=== PATIENT | male | born 1945 | race Caucasian/White ===

== ENCOUNTER → 2017-06-27 | Outpatient (CLI) | payer MEDICARE, OTHER ==
[~2017-06-27] MED LIST: ADENOSINE 114 MG in GIVE UN-DILUTED 0 ML IV ONE; ADENOSINE 90 MG/30 ML INJ IV ONE; ATEN50TA80 OR; CARI-277 PO; CITA20TA3 PO; DUTACAP PO; GABA100C9 PO; GEMF600T OR; GLYB1.257 PO; HYDR-4683 PO; LIS10T PO; METF-371 OR; OMEG1CAP10 PO; TEMA30CA PO
== END ==
LOC: Rad HDHVI 13:37
PROVIDERS: ATTEND Internal Medicine Cardiovascular Disease
DX: I10 Essential (primary) hypertension (principal); I21.9 Acute myocardial infarction, unspecified; E11.9 Type 2 diabetes mellitus without complications; I25.10 Atherosclerotic heart disease of native coronary artery without angina pectoris; I42.9 Cardiomyopathy, unspecified; Z95.1 Presence of aortocoronary bypass graft; Z82.49 Family history of ischemic heart disease and other diseases of the circulatory system
CPT/HCPCS: 78452; 93005; 96374; 96375; A9500; J0153

== ENCOUNTER → 2018-06-21 | Outpatient (CLI) | payer MEDICARE, OTHER ==
[~2018-06-21] VITALS: Ht 193 cm; Wt 131.1 kg
[~2018-06-21] MED LIST changes: +ADENOSINE 110 MG in GIVE UN-DILUTED 0 ML IV ONE; -ADENOSINE 114 MG in GIVE UN-DILUTED 0 ML IV ONE
== END | disposition home or self-care (01) ==
LOC: Rad HDHVI 12:59
PROVIDERS: ATTEND Internal Medicine Cardiovascular Disease
DX: I25.5 Ischemic cardiomyopathy (principal); E78.2 Mixed hyperlipidemia; E11.9 Type 2 diabetes mellitus without complications; Z88.8 Allergy status to other drugs, medicaments and biological substances
CPT/HCPCS: 78452; 93005; 96374; 96375; A9500; J0153

== ENCOUNTER → 2019-04-04 | Outpatient (CLI) | payer MEDICARE, OTHER ==
[~2019-04-04] MED LIST changes: -ADENOSINE 110 MG in GIVE UN-DILUTED 0 ML IV ONE; -ADENOSINE 90 MG/30 ML INJ IV ONE; -HYDR-4683 PO; +HYDR-4833 PO
== END | disposition home or self-care (01) ==
LOC: Rad HDHVI 10:45
PROVIDERS: ATTEND Internal Medicine Cardiovascular Disease
DX: I25.10 Atherosclerotic heart disease of native coronary artery without angina pectoris (principal); I11.9 Hypertensive heart disease without heart failure
CPT/HCPCS: 71046

== ENCOUNTER → 2019-06-25 | Outpatient (CLI) | payer MEDICARE, OTHER ==
[~2019-06-25] MED LIST changes: +ALLO100T PO; +AMIT25TA9 PO; +AMLO10TA13 PO; +ASPI-404 PO; +CALC0.25 PO; +FENO160T8 PO; +FINA5TAB4 PO; +FURO20TA3 PO; +INSLANTI SC; +LORA-622 PO; +LOSA25TA38 PO; +TICA90TA PO
[2019-06-25 10:00] VITALS: BP 142/81
[2019-06-25 10:45] VITALS: BP 134/75
--- NOTE | 2019-06-25 10:45 | NUR ---
Pre-Op Discharge Summary: See e-MAR for any medications given for this visit. Pre-op orders received and carried out per MD of EKG, LABS and chest xrays. Patient given a copy of EKG with instructions to go to [facility] out patient for further follow up care.
[2019-06-25 12:27] LABS: Basophils # (auto) 0 uL; Basophils % (auto) 0.4 % (0.0-2.0); Eosinophils # (auto) 0 uL; Eosinophils % (auto) 0.7 % (0.0-7.0); Hematocrit 43.8 % (41.0-53.0); Hemoglobin 14.9 g/dL (13.5-17.5); Lymphocytes # (auto) 1.1 uL; Lymphocytes % (auto) 24.2 % (10.0-50.0); Mean Corpuscular Hemoglobin 31.7 pg (28.0-32.0); Mean Corpuscular Volume 93.3 fL (80.0-100.0); Monocytes # (auto) 0.4 uL; Monocytes % (auto) 9.8 % (0.0-12.0); Neutrophils # (auto) 2.8 uL; Neutrophils % (auto) 64.9 % (37.0-80.0); Nucleated Red Blood Cells % 0.1 %; Platelet Count (auto) 125 10^3/uL (140-450); Red Cell Distribution Width 13.6 % (11.8-14.3); White Blood Cell 4.4 10^3/uL (4.4-10.8)
[2019-06-25 12:42] LABS: BUN/Creatinine Ratio 14.1; Calcium 8.9 mg/dL (8.5-10.1); Potassium 4.5 mmol/L (3.5-5.1)
[2019-06-25 12:44] LABS: INR 1.04 (0.9-1.15); Partial Thromboplastin Time 25.3 sec (23.64-32.05)
== END | disposition home or self-care (01) ==
LOC: Rad HDHVI 10:03
PROVIDERS: ATTEND Internal Medicine Cardiovascular Disease
DX: Z01.812 Encounter for preprocedural laboratory examination (principal); R06.02 Shortness of breath; I50.9 Heart failure, unspecified; I48.91 Unspecified atrial fibrillation; I25.10 Atherosclerotic heart disease of native coronary artery without angina pectoris; I25.2 Old myocardial infarction; R94.31 Abnormal electrocardiogram [ECG] [EKG]
CPT/HCPCS: 36415; 71046; 80048; 85025; 85610; 85730; 93005; G0463

== ENCOUNTER 2019-06-28 07:27 | Day surgery (SDC) | payer MEDICARE, OTHER ==
[~2019-06-28] VITALS: Ht 188 cm; Wt 127.0 kg
[~2019-06-28 07:27] MED LIST changes: -ATEN50TA80 OR; -CARI-277 PO; -CITA20TA3 PO; -DUTACAP PO; -GEMF600T OR; -HYDR-4833 PO; -LIS10T PO; -METF-371 OR; -OMEG1CAP10 PO
[2019-06-28] MEDS ORDERED: IOHEXOL 350 MG/ML 100ML IJ ONE (08:16)
[2019-06-28] MEDS ORDERED: LIDOCAINE 2%HCL (LOCAL ANESTH.) INJ 20ML MDV ONE (08:16)
[2019-06-28] MEDS ORDERED: ANGIOMAX 250 MG VIAL IV ONE (08:52)
[2019-06-28] MEDS ORDERED: MIDAZOLAM HCL 1MG/1ML-2 ML VIAL ONE (08:52)
[2019-06-28] MEDS ORDERED: SODIUM CHL 0.9% 0 ML ONE (08:52)
[2019-06-28] MEDS ORDERED: fentaNYL CITRATE 100 MCG/2 ML VL ONE (08:52)
[2019-06-28] MEDS ORDERED: IODIXANOL 320MG/ML 100ML BTL IV ONE ×2 (09:12→09:43)
[2019-06-28] MEDS ORDERED: ONDANSETRON HCL 4 MG/2 ML VIAL IV PRN (10:15)
[2019-06-28] MEDS ORDERED: HYDROcodone-ACET 5/325MG TAB PO PRN (10:15)
[2019-06-28] MEDS ORDERED: ACETAMINOPHEN 500 MG TAB PO PRN (10:15)
[2019-06-28] MEDS ORDERED: SODIUM CHLORIDE 0.9% 500 ML IV ONE (11:00)
== END 2019-06-28 12:16 | disposition home or self-care (01) ==
LOC: CATH 07:27
PROVIDERS: ATTEND Internal Medicine Cardiovascular Disease
DX: I25.10 Atherosclerotic heart disease of native coronary artery without angina pectoris (principal); I10 Essential (primary) hypertension; I25.2 Old myocardial infarction; E11.40 Type 2 diabetes mellitus with diabetic neuropathy, unspecified; E11.21 Type 2 diabetes mellitus with diabetic nephropathy; Z95.1 Presence of aortocoronary bypass graft; Z79.4 Long term (current) use of insulin; Z79.82 Long term (current) use of aspirin; Z79.899 Other long term (current) drug therapy; Z87.891 Personal history of nicotine dependence
CPT/HCPCS: 93455; C1760; C1894; J1644; J2250; J3010; J7030; Q9967; 93459; 99152; 99153

== ENCOUNTER → 2020-02-01 | Outpatient (CLI) | payer MEDICARE, OTHER ==
[~2020-02-01] MED LIST changes: -ASPI-404 PO; +ASPI-543 PO
[2020-02-01 12:40] LABS: Basophils # (auto) 0 10 ^3/uL (0-0.2); Basophils % (auto) 0.5 % (0.0-2.0); Eosinophils # (auto) 0 10 ^3/uL (0-0.8); Hematocrit 42.7 % (41.0-53.0); Hemoglobin 14.9 g/dL (13.5-17.5); Lymphocytes # (auto) 1.2 10 ^3/uL (0.4-5.4); Lymphocytes % (auto) 27.1 % (10.0-50.0); Mean Corpuscular Hemoglobin 31.6 pg (28.0-32.0); Mean Corpuscular Hgb Conc. 34.8 g/dL (32.0-36.0); Mean Corpuscular Volume 90.7 fL (80.0-100.0); Monocytes # (auto) 0.4 10 ^3/uL (0-1.3); Monocytes % (auto) 9.8 % (0.0-12.0); Neutrophils # (auto) 2.7 10 ^3/uL (1.6-8.6); Neutrophils % (auto) 61.6 % (37.0-80.0); Nucleated Red Blood Cells % 0.1 %; Platelet Count (auto) 141 10^3/uL (140-450); Potassium 4.7 mmol/L (3.5-5.1); Red Blood Cells 4.71 10^6/uL (4.5-5.90); Red Cell Distribution Width 13.4 % (11.8-14.3); White Blood Cell 4.4 10^3/uL (4.4-10.8)
[2020-02-01 12:55] LABS: Albumin 4.1 g/dL (3.4-5.0); BUN/Creatinine Ratio 12.4; Bilirubin, Direct 0.2 mg/dL (0-0.2); Bilirubin, Total 0.4 mg/dL (0.2-1.0); Calcium 9.2 mg/dL (8.5-10.1); Magnesium 2.5 mg/dL (1.6-2.6); Phosphorus 2.6 mg/dL (2.5-4.90); Total Protein 7.7 g/dL (6.4-8.2)
== END | disposition home or self-care (01) ==
LOC: LAB 11:05
PROVIDERS: ATTEND Internal Medicine Cardiovascular Disease
DX: C61 Malignant neoplasm of prostate (principal); D51.3 Other dietary vitamin B12 deficiency anemia; D64.9 Anemia, unspecified; E55.9 Vitamin D deficiency, unspecified; I10 Essential (primary) hypertension; E11.9 Type 2 diabetes mellitus without complications; R00.2 Palpitations; R53.1 Weakness; R30.0 Dysuria
CPT/HCPCS: 36415; 80053; 80061; 80076; 82306; 83036; 83735; 83970; 84100; 84153; 84154; 84403; 84443; 85025; 87086

== ENCOUNTER → 2020-02-14 | Outpatient (CLI) | payer MEDICARE, OTHER | END | disposition home or self-care (01) | LOC: Rad HDHVI 14:02 | PROVIDERS: ATTEND Internal Medicine Cardiovascular Disease | DX: I50.23 Acute on chronic systolic (congestive) heart failure (principal); E78.5 Hyperlipidemia, unspecified; Z95.1 Presence of aortocoronary bypass graft | CPT/HCPCS: 93306 ==

== ENCOUNTER → 2020-08-18 | Outpatient (CLI) | payer MEDICARE, OTHER ==
[~2020-08-18] MED LIST changes: +AMLO-496 PO; -AMLO10TA13 PO
[2020-08-18 16:06] LABS: Albumin 3.8 g/dL (3.4-5.0); Potassium 4.5 mmol/L (3.5-5.1)
[2020-08-18 16:17] LABS: BUN/Creatinine Ratio 12.9; Bilirubin, Total 0.5 mg/dL (0.2-1.0); Calcium 9.2 mg/dL (8.5-10.1); Total Protein 7.2 g/dL (6.4-8.2)
== END | disposition home or self-care (01) ==
LOC: LAB 11:50
PROVIDERS: ATTEND Internal Medicine Cardiovascular Disease
DX: I12.9 Hypertensive chronic kidney disease with stage 1 through stage 4 chronic kidney disease, or unspecified chronic kidney disease (principal); E11.22 Type 2 diabetes mellitus with diabetic chronic kidney disease; N18.4 Chronic kidney disease, stage 4 (severe)
CPT/HCPCS: 36415; 80053; 80061; 83036

== ENCOUNTER → 2022-10-08 | Outpatient (CLI) | payer MEDICARE, OTHER ==
[~2022-10-08] MED LIST changes: +AMIT25TA20 PO; -AMIT25TA9 PO; -AMLO-496 PO; +AMLO1TAB23 PO; +FENO160T PO; -FENO160T8 PO; +GABA-1308 PO; -GABA100C9 PO; +LOSA25TA15 PO; -LOSA25TA38 PO
== END | disposition home or self-care (01) ==
LOC: Rad HDHVI 12:55
PROVIDERS: ATTEND Internal Medicine Cardiovascular Disease
DX: R06.02 Shortness of breath (principal); I70.0 Atherosclerosis of aorta
CPT/HCPCS: 71046

== ENCOUNTER → 2022-10-14 | Outpatient (CLI) | payer MEDICARE, OTHER | END | disposition home or self-care (01) | LOC: Rad HDHVI 13:59 | PROVIDERS: ATTEND Internal Medicine Cardiovascular Disease | DX: I08.1 Rheumatic disorders of both mitral and tricuspid valves (principal); R06.02 Shortness of breath; E78.5 Hyperlipidemia, unspecified | CPT/HCPCS: 93306 ==

== ENCOUNTER → 2022-11-01 | Outpatient (CLI) | payer MEDICARE, OTHER ==
[~2022-11-01] VITALS: Ht 193 cm; Wt 132.9 kg
[~2022-11-01] MED LIST changes: +ADENOSINE 112 MG in GIVE UN-DILUTED 0 ML IV ONE; +ADENOSINE 90 MG/30 ML INJ IV ONE
== END | disposition home or self-care (01) ==
LOC: Rad HDHVI 12:52
PROVIDERS: ATTEND Internal Medicine Cardiovascular Disease
DX: N18.30 Chronic kidney disease, stage 3 unspecified (principal); I11.0 Hypertensive heart disease with heart failure; I50.43 Acute on chronic combined systolic (congestive) and diastolic (congestive) heart failure; I25.10 Atherosclerotic heart disease of native coronary artery without angina pectoris; R06.02 Shortness of breath; E11.21 Type 2 diabetes mellitus with diabetic nephropathy; E11.65 Type 2 diabetes mellitus with hyperglycemia; I25.5 Ischemic cardiomyopathy; E11.40 Type 2 diabetes mellitus with diabetic neuropathy, unspecified; R42 Dizziness and giddiness
CPT/HCPCS: 78452; 93005; 96374; 96375; A9500; J0153

== ENCOUNTER → 2023-09-05 | Outpatient (CLI) | payer MEDICARE, OTHER ==
[~2023-09-05] MED LIST changes: -ADENOSINE 112 MG in GIVE UN-DILUTED 0 ML IV ONE; -ADENOSINE 90 MG/30 ML INJ IV ONE; +LOSA-533 PO; -LOSA25TA15 PO
== END | disposition home or self-care (01) ==
LOC: Rad HDHVI 15:51
PROVIDERS: ATTEND Internal Medicine Cardiovascular Disease
DX: I10 Essential (primary) hypertension (principal); R06.02 Shortness of breath
CPT/HCPCS: 93306

== ENCOUNTER 2023-10-13 10:42 | Day surgery (SDC) | payer MEDICARE, OTHER ==
[2023-10-12 14:36] LABS: Basophils # (auto) 0 10 ^3/uL (0-0.2); Basophils % (auto) 0.8 % (0.0-2.0); Eosinophils # (auto) 0 10 ^3/uL (0-0.8); Eosinophils % (auto) 0.6 % (0.0-7.0); Hematocrit 42.2 % (41.0-53.0); Hemoglobin 14.2 g/dL (13.5-17.5); Lymphocytes # (auto) 1.2 10 ^3/uL (0.4-5.4); Lymphocytes % (auto) 21.5 % (10.0-50.0); Mean Corpuscular Hemoglobin 31.2 pg (28.0-32.0); Mean Corpuscular Hgb Conc. 33.7 g/dL (32.0-36.0); Mean Corpuscular Volume 92.8 fL (80.0-100.0); Monocytes # (auto) 0.5 10 ^3/uL (0-1.3); Monocytes % (auto) 8.5 % (0.0-12.0); Neutrophils # (auto) 3.8 10 ^3/uL (1.6-8.6); Neutrophils % (auto) 68.6 % (37.0-80.0); Nucleated Red Blood Cells % 0.1 %; Red Blood Cells 4.55 10^6/uL (4.5-5.90); Red Cell Distribution Width 13.7 % (11.8-14.3); White Blood Cell 5.5 10^3/uL (4.4-10.8)
[2023-10-12 14:59] LABS: INR 1.08 (0.9-1.15); Partial Thromboplastin Time 25.2 SEC (24.5-34.5); Prothrombin Time 11.4 sec (9.3-11.8)
[2023-10-12 15:14] LABS: Chloride 107 mmol/L (98-107); Potassium 4.9 mmol/L (3.5-5.1); Sodium 141 mmol/L (136-145)
[2023-10-12 15:15] LABS: Anion Gap 4 (5-15); Carbon Dioxide 30 mmol/L (20-30)
[2023-10-12 15:20] LABS: BUN/Creatinine Ratio 13.7 (10.0-20.0); Blood Urea Nitrogen 29 mg/dL (9-23); Glucose 98 mg/dL (74-106)
[2023-10-13] VITALS (8 sets, daily range): BP systolic 110–132; BP diastolic 45–73; PULSE 54–63; RESP 12–16; O2SAT 93–97
[~2023-10-13] VITALS: Ht 193 cm; Wt 111.6 kg
[~2023-10-13 10:42] MED LIST changes: +ALIR75IN2 SC; -ALLO100T PO; +CLOP75TA28 PO; -INSLANTI SC; -LORA-622 PO; +NITR0.4S29 SL; +PERCOT PO; +POM PO; +SEMA2INJ3 SC; +TAMS0.4C36 PO; -TICA90TA PO
[2023-10-13] MEDS ORDERED: MIDAZOLAM HCL 2MG/2ML 2ml VIAL (1mg/ml) ONE (12:04)
[2023-10-13] MEDS ORDERED: fentaNYL CITRATE 100 MCG/2 ML VL ONE (12:04)
[2023-10-13] MEDS ORDERED: LIDOCAINE 2%HCL (LOCAL ANESTH.) INJ 20ML MDV ONE (12:04)
[2023-10-13] MEDS ORDERED: ANGIOMAX 250 MG VIAL IV ONE (12:04)
[2023-10-13] MEDS ORDERED: SODIUM CHL 0.9% 0 ML ONE (12:05)
[2023-10-13] MEDS ORDERED: IODIXANOL 320MG/ML 100ML BTL IV ONE (12:05)
== END 2023-10-13 17:33 | disposition home or self-care (01) ==
LOC: CATH 10:42
PROVIDERS: ATTEND Internal Medicine Cardiovascular Disease
DX: I25.10 Atherosclerotic heart disease of native coronary artery without angina pectoris (principal); I10 Essential (primary) hypertension; Z79.01 Long term (current) use of anticoagulants; Z95.1 Presence of aortocoronary bypass graft
CPT/HCPCS: 36415; 80048; 85025; 85610; 85730; 93459; C1760; C1769; C1887; C1894; J1644; J2250; J3010; Q9967; 99152

== ENCOUNTER → 2023-11-08 | Outpatient (CLI) | payer MEDICARE, OTHER ==
[2023-11-08 16:46] VITALS: BP_SYST 124; BP_SYST 136; BP_DIAS 78; PULSE 68; PULSE 75
== END | disposition home or self-care (01) ==
LOC: CHF HDHVI 14:22
PROVIDERS: ATTEND Internal Medicine Cardiovascular Disease
DX: I25.718 Atherosclerosis of autologous vein coronary artery bypass graft(s) with other forms of angina pectoris (principal); I50.23 Acute on chronic systolic (congestive) heart failure; E11.9 Type 2 diabetes mellitus without complications; Z95.1 Presence of aortocoronary bypass graft
CPT/HCPCS: G0166

== ENCOUNTER → 2023-11-15 | Outpatient (CLI) | payer MEDICARE, OTHER ==
[2023-11-15 15:49] VITALS: BP 130/79; PULSE 71
[2023-11-15 15:50] VITALS: BP 130/84; PULSE 65
== END | disposition home or self-care (01) ==
LOC: CHF HDHVI 14:43
PROVIDERS: ATTEND Internal Medicine Cardiovascular Disease
DX: I25.118 Atherosclerotic heart disease of native coronary artery with other forms of angina pectoris (principal); I25.5 Ischemic cardiomyopathy; I50.23 Acute on chronic systolic (congestive) heart failure
CPT/HCPCS: G0166

== ENCOUNTER → 2023-11-23 | Outpatient (CLI) | payer MEDICARE, OTHER ==
[2023-11-23 15:33] VITALS: BP_SYST 117; BP_SYST 119; BP_DIAS 72; PULSE 69; PULSE 72
== END | disposition home or self-care (01) ==
LOC: CHF HDHVI 14:05
PROVIDERS: ATTEND Internal Medicine Cardiovascular Disease
DX: I25.718 Atherosclerosis of autologous vein coronary artery bypass graft(s) with other forms of angina pectoris (principal); I11.0 Hypertensive heart disease with heart failure; I50.23 Acute on chronic systolic (congestive) heart failure; E11.9 Type 2 diabetes mellitus without complications; R06.02 Shortness of breath; E78.5 Hyperlipidemia, unspecified; Z95.1 Presence of aortocoronary bypass graft
CPT/HCPCS: G0166

== ENCOUNTER → 2023-11-25 | Outpatient (CLI) | payer MEDICARE, OTHER ==
[2023-11-25 15:57] VITALS: BP 133/78; PULSE 70
[2023-11-25 16:10] VITALS: BP 133/78; PULSE 70
== END | disposition home or self-care (01) ==
LOC: CHF HDHVI 14:53
PROVIDERS: ATTEND Internal Medicine Cardiovascular Disease
DX: I25.718 Atherosclerosis of autologous vein coronary artery bypass graft(s) with other forms of angina pectoris (principal); I50.23 Acute on chronic systolic (congestive) heart failure; E11.9 Type 2 diabetes mellitus without complications; Z95.5 Presence of coronary angioplasty implant and graft
CPT/HCPCS: G0166

== ENCOUNTER → 2023-11-30 | Outpatient (CLI) | payer MEDICARE, OTHER ==
[2023-11-30 16:19] VITALS: BP_SYST 126; BP_SYST 128; BP_DIAS 78; BP_DIAS 81; PULSE 68; PULSE 72
== END | disposition home or self-care (01) ==
LOC: CHF HDHVI 14:41
PROVIDERS: ATTEND Internal Medicine Cardiovascular Disease
DX: I25.718 Atherosclerosis of autologous vein coronary artery bypass graft(s) with other forms of angina pectoris (principal); I50.23 Acute on chronic systolic (congestive) heart failure; R06.02 Shortness of breath; E11.9 Type 2 diabetes mellitus without complications
CPT/HCPCS: G0166

== ENCOUNTER → 2023-12-09 | Outpatient (CLI) | payer MEDICARE, OTHER ==
[2023-12-09 15:56] VITALS: BP_SYST 130; BP_SYST 135; BP_DIAS 66; BP_DIAS 76; PULSE 67; PULSE 73
== END | disposition home or self-care (01) ==
LOC: CHF HDHVI 14:44
PROVIDERS: ATTEND Internal Medicine Cardiovascular Disease
DX: I25.718 Atherosclerosis of autologous vein coronary artery bypass graft(s) with other forms of angina pectoris (principal); I50.23 Acute on chronic systolic (congestive) heart failure; I10 Essential (primary) hypertension; E11.9 Type 2 diabetes mellitus without complications; Z98.61 Coronary angioplasty status
CPT/HCPCS: G0166

== ENCOUNTER → 2023-12-16 | Outpatient (CLI) | payer MEDICARE, OTHER ==
[2023-12-16 15:54] VITALS: BP 130/74; PULSE 72
[2023-12-16 15:55] VITALS: BP 126/77; PULSE 73
== END | disposition home or self-care (01) ==
LOC: CHF HDHVI 14:29
PROVIDERS: ATTEND Internal Medicine Cardiovascular Disease
DX: I25.718 Atherosclerosis of autologous vein coronary artery bypass graft(s) with other forms of angina pectoris (principal); I50.23 Acute on chronic systolic (congestive) heart failure; R06.02 Shortness of breath; E11.9 Type 2 diabetes mellitus without complications; Z95.1 Presence of aortocoronary bypass graft; Z79.899 Other long term (current) drug therapy
CPT/HCPCS: G0166

== ENCOUNTER → 2023-12-23 | Outpatient (CLI) | payer MEDICARE, OTHER ==
[~2023-12-23] MED LIST changes: -TAMS0.4C36 PO; +TAMS0.4C39 PO
[2023-12-23 15:59] VITALS: BP 134/80; PULSE 67
[2023-12-23 16:00] VITALS: BP 136/79; PULSE 71
== END | disposition home or self-care (01) ==
LOC: CHF HDHVI 14:37
PROVIDERS: ATTEND Internal Medicine Cardiovascular Disease
DX: I25.718 Atherosclerosis of autologous vein coronary artery bypass graft(s) with other forms of angina pectoris (principal); I50.23 Acute on chronic systolic (congestive) heart failure
CPT/HCPCS: G0166

== ENCOUNTER → 2023-12-30 | Outpatient (CLI) | payer MEDICARE, OTHER ==
[2023-12-30 16:02] VITALS: BP 128/76; PULSE 76
[2023-12-30 16:03] VITALS: BP 118/78; PULSE 67
== END | disposition home or self-care (01) ==
LOC: Rad HDHVI 14:46
PROVIDERS: ATTEND Internal Medicine Cardiovascular Disease
DX: I25.718 Atherosclerosis of autologous vein coronary artery bypass graft(s) with other forms of angina pectoris (principal); I50.23 Acute on chronic systolic (congestive) heart failure; R06.02 Shortness of breath; E11.9 Type 2 diabetes mellitus without complications; Z95.1 Presence of aortocoronary bypass graft
CPT/HCPCS: G0166

== ENCOUNTER → 2024-01-18 | Outpatient (CLI) | payer MEDICARE, OTHER ==
[2024-01-18 16:16] VITALS: BP 128/78; PULSE 82
[2024-01-18 16:17] VITALS: BP 119/84; PULSE 82
== END | disposition home or self-care (01) ==
LOC: CHF HDHVI 15:09
PROVIDERS: ATTEND Internal Medicine Cardiovascular Disease
DX: I25.718 Atherosclerosis of autologous vein coronary artery bypass graft(s) with other forms of angina pectoris (principal); E11.9 Type 2 diabetes mellitus without complications; I10 Essential (primary) hypertension; E78.5 Hyperlipidemia, unspecified; Z95.1 Presence of aortocoronary bypass graft
CPT/HCPCS: G0166

== ENCOUNTER → 2024-02-01 | Outpatient (CLI) | payer MEDICARE, OTHER ==
[2024-02-01 15:52] VITALS: BP 128/82; PULSE 67
[2024-02-01 15:53] VITALS: BP 129/77; PULSE 63
== END | disposition home or self-care (01) ==
LOC: CHF HDHVI 14:33
PROVIDERS: ATTEND Internal Medicine Cardiovascular Disease
DX: I25.718 Atherosclerosis of autologous vein coronary artery bypass graft(s) with other forms of angina pectoris (principal); I50.23 Acute on chronic systolic (congestive) heart failure
CPT/HCPCS: G0166

== ENCOUNTER → 2024-02-03 | Outpatient (CLI) | payer MEDICARE, OTHER ==
[2024-02-03 16:03] VITALS: BP_SYST 122; BP_SYST 134; BP_DIAS 72; BP_DIAS 84; PULSE 67; PULSE 69
== END | disposition home or self-care (01) ==
LOC: CHF HDHVI 14:58
PROVIDERS: ATTEND Internal Medicine Cardiovascular Disease
DX: I25.718 Atherosclerosis of autologous vein coronary artery bypass graft(s) with other forms of angina pectoris (principal); I50.23 Acute on chronic systolic (congestive) heart failure
CPT/HCPCS: G0166

== ENCOUNTER → 2024-03-16 | Outpatient (CLI) | payer MEDICARE, OTHER ==
[2024-03-16 15:34] VITALS: BP 127/80; PULSE 77
[2024-03-16 15:36] VITALS: BP 130/80; PULSE 64
== END | disposition home or self-care (01) ==
LOC: CHF HDHVI 14:17
PROVIDERS: ATTEND Internal Medicine Cardiovascular Disease
DX: I25.718 Atherosclerosis of autologous vein coronary artery bypass graft(s) with other forms of angina pectoris (principal); I50.23 Acute on chronic systolic (congestive) heart failure; R06.02 Shortness of breath; E11.69 Type 2 diabetes mellitus with other specified complication; Z95.1 Presence of aortocoronary bypass graft
CPT/HCPCS: G0166

== ENCOUNTER → 2024-03-28 | Outpatient (CLI) | payer MEDICARE, OTHER ==
[2024-03-28 16:20] VITALS: BP_SYST 133; BP_SYST 140; BP_DIAS 78; BP_DIAS 80; PULSE 62; PULSE 76
== END | disposition home or self-care (01) ==
LOC: CHF HDHVI 14:40
PROVIDERS: ATTEND Internal Medicine Cardiovascular Disease
DX: I25.718 Atherosclerosis of autologous vein coronary artery bypass graft(s) with other forms of angina pectoris (principal); I50.23 Acute on chronic systolic (congestive) heart failure
CPT/HCPCS: G0166

== ENCOUNTER → 2024-04-13 | Outpatient (CLI) | payer MEDICARE, OTHER ==
[2024-04-13 15:47] VITALS: BP 132/82; PULSE 77
== END | disposition home or self-care (01) ==
LOC: CHF HDHVI 14:48
PROVIDERS: ATTEND Internal Medicine Cardiovascular Disease
DX: I25.718 Atherosclerosis of autologous vein coronary artery bypass graft(s) with other forms of angina pectoris (principal); I11.0 Hypertensive heart disease with heart failure; I50.23 Acute on chronic systolic (congestive) heart failure; E78.5 Hyperlipidemia, unspecified; R06.02 Shortness of breath; E11.9 Type 2 diabetes mellitus without complications; Z95.1 Presence of aortocoronary bypass graft
CPT/HCPCS: G0166

== ENCOUNTER → 2024-04-27 | Outpatient (CLI) | payer MEDICARE, OTHER ==
[2024-04-27 15:19] VITALS: BP 141/80; PULSE 68
[2024-04-27 15:38] VITALS: BP 136/78; PULSE 63
== END | disposition home or self-care (01) ==
LOC: CHF HDHVI 14:27
PROVIDERS: ATTEND Internal Medicine Cardiovascular Disease
DX: I25.718 Atherosclerosis of autologous vein coronary artery bypass graft(s) with other forms of angina pectoris (principal); I50.23 Acute on chronic systolic (congestive) heart failure; R06.02 Shortness of breath; Z95.1 Presence of aortocoronary bypass graft
CPT/HCPCS: G0166

== ENCOUNTER → 2024-05-22 | Outpatient (CLI) | payer MEDICARE, OTHER ==
[~2024-05-22] MED LIST changes: +ALPR0.5T8
[2024-05-22 12:20] VITALS: BP 133/68; PULSE 69; RESP 17; O2SAT 98
[2024-05-22] MEDS: MVI in SODIUM CHLORIDE 0.9% 500 ML IVB ONE (12:20)
[2024-05-22] MEDS: CYANOCOBALAMIN (B-12) 1000 MCG/1 ML VIAL IM ONE (12:20)
[2024-05-22] MEDS: CYANOCOBALAMIN (B-12) 1000 MCG/1 ML VIAL ONE (12:31)
[2024-05-22] MEDS: MULTIPLE VIT 10 ML IV ONE (12:31)
--- NOTE | 2024-05-22 12:50 | DVH ---
EXAM: XY CHEST TWO VIEWS ROUTINE CLINICAL HISTORY: SOB COMPARISON: XY CHEST TWO VIEWS ROUTINE on DOS: 10/12/23, XY CHEST TWO VIEWS ROUTINE on DOS: 10/08/22, [place] [address] TWO VIEWS ROUTINE on DOS: 06/25/19, CHEST TWO VIEWS ROUTINE on DOS: 04/04/19 TECHNIQUE: Frontal and lateral view of the chest was obtained FINDINGS: Lines and Tubes: None Lungs: No focal consolidation. Pleura: No effusion. No pneumothorax. Cardiomediastinal contours: Unremarkable Bones: No acute osseous abnormality. IMPRESSION: No acute cardiopulmonary disease.
[2024-05-22 14:49] VITALS: BP 121/62; PULSE 61; RESP 18; O2SAT 98
== END | disposition home or self-care (01) ==
LOC: Rad HDHVI 12:22
PROVIDERS: ATTEND Internal Medicine Cardiovascular Disease
DX: E86.0 Dehydration (principal); I12.9 Hypertensive chronic kidney disease with stage 1 through stage 4 chronic kidney disease, or unspecified chronic kidney disease; E11.22 Type 2 diabetes mellitus with diabetic chronic kidney disease; E11.65 Type 2 diabetes mellitus with hyperglycemia; N18.32 Chronic kidney disease, stage 3b; I25.10 Atherosclerotic heart disease of native coronary artery without angina pectoris; I25.2 Old myocardial infarction; R53.83 Other fatigue; R53.1 Weakness; Z95.1 Presence of aortocoronary bypass graft
CPT/HCPCS: 71046; 96365; 96366; 96372; G0463; J3411; J3420; J3475; J7040; 96360; 96361

== ENCOUNTER 2024-05-25 10:46 | Inpatient (IN) | payer MEDICARE, OTHER ==
[~2024-05-25] VITALS: Ht 193 cm; Wt 102.5 kg
[~2024-05-25 10:46] MED LIST changes: -ALPR0.5T8
[2024-05-25 11:33] VITALS: PULSE 91; RESP 16; O2SAT 94
[2024-05-25] MEDS: SODIUM CHLORIDE 0.9% 1,000 ML IV ONE (12:42)
--- NOTE | 2024-05-25 12:43 | DVH ---
EXAM: CT HEAD WITHOUT CONTRAST HISTORY: weakness COMPARISON: None TECHNIQUE: Axial images were obtained and reformatted in coronal and sagittal planes. All CT scans at this medical facility are performed using dose modulation techniques as appropriate t o a performed exam including the following: Automated exposure control was utilized; adjustment of th e MA and/or KV according to patient size; and use of iterative reconstruction technique. CT Dose: CTDI volume is 64 mGy. Dose-length product is 2518 mGy*cm FINDINGS: Supratentorial Region: No evidence for large acute territorial ischemia. No intracranial hemorrhage is noted. Confluent white matter hypoattenuating foci are noted bilaterally, which typically reflect chronic microvascular ischemic changes. Posterior Fossa: No acute abnormality. Brainstem: Unremarkable. Sellar/Suprasellar Region: Unremarkable. Ventricles, Cisterns, Sulci: Age-appropriate. Orbits: Unremarkable. Paranasal Sinuses: Unremarkable. Mastoid Air Cells: Unremarkable. Vasculature: Unremarkable. Bones/Soft Tissues: No acute abnormality. Other: None. IMPRESSION: 1. No acute intracranial process.
--- NOTE | 2024-05-25 13:01 | ED.PDOC ---
History of Present Illness HPI Comments 78Y M with PMHx SD presents to ED via EMS for chief complaint general weakness [id number]. Pt states he has had approximately 7 falls due to the weakness and no longer feels safe at home. 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 Pt denies chest pain, SOB, n/v/d, cough, and fever. Pt states he had a fever 1 week ago. No other symptoms reported. Pt denies alcohol, tobacco, and illicit drug use. Chief Complaint: General Weakness Time Seen by MD: 12:35 Reviewed Notes: Nurses Notes, [employer] Consultant Notes, Medications, Allergies Allergies: Coded Allergies: NO KNOWN ALLERGIES (Unverified , 10/12/23) Home Meds Reported Medications Semaglutide (Ozempic) 2 Mg/3 Ml Inj, 1 MG SC QWEEKLY, INJ 10/12/23 Clopidogrel Bisulfate (Plavix) 75 Mg Tab, 1 TAB PO every other day, #90 TAB 1 Refill 10/12/23 Tamsulosin Hcl (Tamsulosin Hcl) 0.4 Mg Cap, 0.4 MG PO QPM for bph for 30 Days, MG 10/12/23 Alirocumab (Praluent) 75 Mg/Ml Inj, 75 MG SC QWEEKLY for EVERY OTHER TUESDAY, INJ 10/12/23 Oxycodone W/ Acetaminophen (Percocet 5/325MG) 1 Tab Tb, 1 TAB PO QID for pain, #120 TAB 10/12/23 Temazepam (Temazepam) 30 Mg Cap, 1 CAP PO QPM for sleep, #30 CAP 1 Refill 10/12/23 Patients Own Medication (PATIENTS OWN MEDICATION) ., 2 GM PO BID for lovaza PTS OWN MED-OBTAIN FROM PT AND SEND TO RX DRUG: FREQ: RX# EXP: DATE DISP: TECH: RPH: 10/12/23 Nitroglycerin (Nitrostat) 0.4 Mg Sub, 0.4 MG SL PRN for cheast pain, INJ 10/12/23 Amlodipine Besylate (Amlodipine Besylate) 10 Mg Tab, 1 TAB PO DAILY, #30 TAB 5 Refills 06/25/19 Finasteride (Finasteride) 5 Mg Tab, 5 MG PO DAILY for 30 Days, MG 06/25/19 Furosemide (Furosemide) 20 Mg Tab, 20 MG PO DAILY for 30 Days, MG 06/25/19 Fenofibrate (Fenofibrate) 160 Mg Tab, 1 TAB PO DAILY, #30 TAB 5 Refills 06/25/19 Calcitriol (Calcitriol) 0.25 Mcg Cap, 0.25 MCG PO DAILY for 30 Days, MCG 06/25/19 Amitriptyline Hcl (Amitriptyline Hcl) 25 Mg Tab, 25 MG PO HS for 30 Days, MG 06/25/19 Losartan Potassium (Losartan Potassium) 25 Mg Tab, 25 MG PO DAILY for 30 Days, MG 06/25/19 Aspirin (Aspir-Low) 81 Mg Tab, 81 MG PO DAILY for 30 Days, MG 06/25/19 Gabapentin (Gabapentin) 100 Mg Cap, 200 MG PO BID, CAP 03/29/13 Glyburide (Glyburide) 1.25 Mg Tab, 1.25 MG PO BID, TAB 03/29/13 Information Source: Patient, Emergency Med Personnel Mode of Arrival: EMS Severity: Moderate Timing: Weeks Duration: Since onset Prehospital treatment: None Past Medical History PAST MEDICAL HISTORY: SD Surgical History: Unobtainable Family History Family History: Unknown Social History Smoker: Non-Smoker Alcohol: Denies ETOH Use Drugs: Denies Drug Use Lives In: Home Constitutional: reports: weakness; denies: chills, diaphoresis, fatigue, fever, malaise, sweats, others EENTM: denies: blurred vision, double vision, ear bleeding, ear discharge, ear drainage, ear pain, ear ringing, eye pain, eye redness, hearing loss, mouth pain, mouth swelling, nasal discharge, nose bleeding, nose congestion, nose pain, photophobia, tearing, throat pain, throat swelling, voice changes, others Respiratory: denies: cough, hemoptysis, orthopnea, SOB at rest, shortness of breath, SOB with excertion, stridor, wheezing, others Cardiovascular: denies: chest pain, dizzy spells, diaphoresis, Dyspnea on exertion, edema, irregular heart beat, left arm pain, lightheadedness, palpitations, PND, syncope, others Gastrointestinal: denies: abdomen distended, abdominal pain, blood streaked bowels, constipated, diarrhea, dysphagia, difficulty swallowing, hematemesis, melena, nausea, poor appetite, poor fluid intake, rectal bleeding, rectal pain, vomiting, others Genitourinary: denies: burning, dysuria, flank pain, frequency, hematuria, incontinence, penile discharge, penile sore, pain, testicle pain, testicle swelling, urgency, others Neurological: reports: weakness; denies: dizziness, fainting, headache, left sided numbness, left sided weakness, numbness, paresthesia, pre-existing deficit, right sided numbness, right sided weakness, seizure, speech problems, tingling, tremors, others Musculoskeletal: denies: back pain, gout, joint pain, joint swelling, muscle pain, muscle stiffness, neck pain, others Integumetry: denies: bruises, change in color, change in hair/nails, dryness, laceration, lesions, lumps, rash, wounds, others Allergic/Immunocompromised: denies: Difficulty Healing, Frequent Infections, Hives, Itching, others Hematologic/Lymphatic: denies: anemia, blood clots, easy bleeding, easy bruising, swollen glands, others Endocrine: denies: excessive hunger, excessive sweating, excessive thirst, excessive urination, flushing, intolerance to cold, intolerance to heat, unexplained weight gain, unexplained weight loss, others Psychiatric: denies: anxiety, bipolar disorder, depression, hopeless, panic disorder, schizophrenia, sleepless, suicidal, others All Other Systems: Reviewed and Negative Physical Exam General Appearance: No Apparent Distress, Normal HEENT: Normal ENT Inspection, Pharynx Normal, TMs Normal Neck: Full Range of Motion, Non-Tender, Normal, Normal Inspection Respiratory: Chest Non-Tender, Lungs Clear, No Accessory Muscle Use, No Respiratory Distress, Normal Breath Sounds Cardiovascular: No Edema, No JVD, No Murmur, No Gallop, Normal Peripheral Pulses, Regular Rate/Rhythm Breast Exam: Deferred Gastrointestinal: No Organomegaly, Non Tender, Normal Bowel Sounds, Soft Genitalia: Deferred Pelvic: Deferred Rectal: Deferred Extremities: No calf tenderness, Normal capillary refill, Normal inspection, Normal range of motion, Non-tender, No pedal edema Musculoskeletal : Apperance: Normal Neurologic: Alert, tea and spice supervisor II-XII nml as Tested, No Motor Deficits, Normal Affect, Normal Mood, No Sensory Deficits Cerebellar Function: NOT DONE Reflexes: NOT DONE Skin: Dry, Normal Color, Warm Lymphatic: No Adenopathy Was a procedure done? Was a procedure done?: No Differential Dx Considerations may include: Dementia, electrolyte abnormality, renal dysfunction, ACS, deconditioning, dehydration, infection X-Ray, Labs, Meds, VS Vital Signs Date Time Temp Pulse Resp B/P (MAP) Pulse Ox O2 Delivery O2 Flow Rate FiO2 05/25/24 17:32 97.5 65 16 128/66 (86) 100 97.5 05/25/24 15:14 97.8 71 16 122/61 (81) 99 97.8 05/25/24 11:33 91 16 94 Room Air* 0 21 05/25/24 11:33 91 16 111/60 (77) 94 05/25/24 10:57 98.1 68 16 142/56 (84) 98 Lab Test 05/25/24 15:19 05/25/24 13:08 Range/Units Lactic Acid Level 1.3 2.1 *H 0.4-2.0 mmol/L White Blood Count 7.4 4.4-10.8 10^3/uL Red Blood Count 3.91 L 4.5-5.90 10^6/uL Hemoglobin 12.4 L 13.5-17.5 g/dL Hematocrit 36.0 L 41.0-53.0 % Mean Corpuscular Volume 92.2 80.0-100.0 fL Mean Corpuscular Hemoglobin 31.8 28.0-32.0 pg Mean Corpuscular Hemoglobin Concent 34.5 32.0-36.0 g/dL Red Cell Distribution Width 13.1 11.8-14.3 % Platelet Count 192 140-450 10^3/uL Mean Platelet Volume 6.8 L 6.9-10.8 fL Neutrophils (%) (Auto) 81.9 H 37.0-80.0 % Lymphocytes (%) (Auto) 9.6 L 10.0-50.0 % Monocytes (%) (Auto) 8.5 0.0-12.0 % Eosinophils (%) (Auto) 0.0 0.0-7.0 % Basophils (%) (Auto) 0.0 0.0-2.0 % Neutrophils # (Auto) 6.0 1.6-8.6 10 ^3/uL Lymphocytes # (Auto) 0.7 0.4-5.4 10 ^3/uL Monocytes # (Auto) 0.6 0-1.3 10 ^3/uL Eosinophils # (Auto) 0 0-0.8 10 ^3/uL Basophils # (Auto) 0 0-0.2 10 ^3/uL Nucleated Red Blood Cells 0.0 % Sodium Level 137 136-145 mmol/L Potassium Level 5.1 3.5-5.1 mmol/L Chloride Level 105 98-107 mmol/L Carbon Dioxide Level 25 20-31 mmol/L Anion Gap 7 5-15 Blood Urea Nitrogen 50 H 9-23 mg/dL Creatinine 1.94 H 0.700-1.30 mg/dL Glomerular Filtration Rate Calc 35 >90 mL/min BUN/Creatinine Ratio 25.8 H 10.0-20.0 Serum Glucose 172 H 74-106 mg/dL Calcium Level 9.6 8.7-10.4 mg/dL Total Bilirubin 0.4 0.2-1.0 mg/dL Direct Bilirubin 0.2 <0.3 mg/dL Aspartate Amino Transferase (AST) 15 13-40 U/L Alanine Aminotransferase (ALT) 15 7-40 U/L Alkaline Phosphatase 50 46-116 U/L B-Type Natriuretic Peptide 27.78 0-100 pg/mL Total Protein 5.7 5.7-8.2 g/dL Albumin 3.9 3.2-4.8 g/dL Lipase 91 H 12-53 U/L Thyroid Stimulating Hormone (TSH) 1.25 0.55-4.78 uIU/mL Current Medications Medications (Trade) Dose Ordered Sig/Monica Route Start Time Stop Time Status Last Admin Sodium Chloride 1,000 ml @ 1,000 mls/hr Q1H ONCE IV 05/25/24 12:15 05/25/24 13:14 DC 05/25/24 12:42 [place] [id number] Ph: [phone] DIAGNOSTIC IMAGING Diagnostic Imaging Report : [id number] Signed PATIENT: EMERSON GUERRERO ACCT: [id number] UNIT: [id number] : 1945 LOC: ER ROOM / BED: / AGE / SEX: 78 / M ADM STATUS: REG ER SERVICE 1212 ORDERING PHYSICIAN: ÁNGELA PENALOZA MD PROCEDURE(s): HWOCT - HEAD WITHOUT CONTRAST REASON: weakness ORDER NUMBER(s): [id number], ACCESSION NUMBER(s): [id number] EXAM: CT HEAD WITHOUT CONTRAST HISTORY: weakness COMPARISON: None TECHNIQUE: Axial images were obtained and reformatted in coronal and sagittal planes. All CT scans at this medical facility are performed using dose modulation techniques as appropriate to a performed exam including the following: Automated exposure control was utilized; adjustment of the MA and/or KV according to patient size; and use of iterative reconstruction technique. CT Dose: CTDI volume is 64 mGy. Dose-length product is 2518 mGy*cm FINDINGS: Supratentorial Region: No evidence for large acute territorial ischemia. No intracranial hemorrhage is noted. Confluent white matter hypoattenuating foci are noted bilaterally, which typically reflect chronic microvascular ischemic changes. Posterior Fossa: No acute abnormality. Brainstem: Unremarkable. Sellar/Suprasellar Region: Unremarkable. Ventricles, Cisterns, Sulci: Age-appropriate. Orbits: Unremarkable. Paranasal Sinuses: Unremarkable. Mastoid Air Cells: Unremarkable. Vasculature: Unremarkable. Bones/Soft Tissues: No acute abnormality. Other: None. IMPRESSION: 1. No acute intracranial process. ATED BY: MANSI TORREZ MD DICTATED DATE/TIME: 05/25/24 124 SIGNED BY: MANSI TORREZ MD SIGNED DATE/TIME: 05/25/24 124 CC: X-Ray, Labs, Meds, VS Comment 78-year-old male here today with complaints of weakness and complaints of feeling unsafe at home due to his history of multiple falls. Vital signs stable, afebrile. Physical exam as above without any acute findings. Labs overall notable for an EDUARDO and elevated lactic acid likely secondary to dehydration. Patient is given a L of fluids IV. CT head without evidence of acute pathology. I had a long discussion with the patient regarding his disposition and he states that he does not feel comfortable going home and I feel that it is appropriate to admit the patient for deconditioning and dehydration and possible PT/OT and placement. Patient in agreement with the plan. Time of 1ST Reevaluation: 13:05 Reevaluation 1ST: Unchanged Time of 2ND Reevaluation: 18:27 Reevaluation 2ND: Improved Patient Education/Counseling: Diagnosis, Treatment, Prognosis Family Education/Counseling: No Family Present Departure 1 Departure Time of Disposition: 18:28 Impression: Primary Impression: Dehydration Additional Impressions: EDUARDO (acute kidney injury) Physical deconditioning Falls Weakness Elevated lactic acid level Disposition: ADMITTED INPATIENT Admit to: Tele Condition: Stable Critical Care Note Critical Care Time?: Yes (30 min-critical care time only) Stability Stability form required: No Heart Score Heart Score: Heart Score Response (Comments) Value History N/A 0 EKG N/A 0 Age N/A 0 Risk Factors N/A 0 Troponin N/A 0 Total 0 I personally scribed for ÁNGELA PENALOZA MD ([email or web address]) on 05/25/24 at 13:01. Electronically submitted by Annalee Greco ([employer]). I personally scribed for ÁNGELA PENALOZA MD ([email or web address]) on 05/25/24 at 13:07. Electronically submitted by Annalee Greco ([employer]). ÁNGELA PENALOZA MD May 25, 2024 13:01
[2024-05-25 13:33] LABS: Basophils # (auto) 0 10 ^3/uL (0-0.2); Eosinophils # (auto) 0 10 ^3/uL (0-0.8); Hemoglobin 12.4 g/dL (13.5-17.5); Lymphocytes # (auto) 0.7 10 ^3/uL (0.4-5.4); Lymphocytes % (auto) 9.6 % (10.0-50.0); Mean Corpuscular Hemoglobin 31.8 pg (28.0-32.0); Mean Corpuscular Hgb Conc. 34.5 g/dL (32.0-36.0); Mean Corpuscular Volume 92.2 fL (80.0-100.0); Monocytes # (auto) 0.6 10 ^3/uL (0-1.3); Monocytes % (auto) 8.5 % (0.0-12.0); Neutrophils % (auto) 81.9 % (37.0-80.0); Platelet Count (auto) 192 10^3/uL (140-450); Red Blood Cells 3.91 10^6/uL (4.5-5.90); Red Cell Distribution Width 13.1 % (11.8-14.3); White Blood Cell 7.4 10^3/uL (4.4-10.8)
[2024-05-25 13:47] LABS: Alanine Aminotransferase 15 U/L (7-40); Albumin 3.9 g/dL (3.2-4.8); Alkaline Phosphatase 50 U/L (46-116); Anion Gap 7 (5-15); Aspartate Aminotransferase 15 U/L (13-40); BUN/Creatinine Ratio 25.8 (10.0-20.0); Bilirubin, Direct 0.2 mg/dL (<0.3); Bilirubin, Total 0.4 mg/dL (0.2-1.0); Calcium 9.6 mg/dL (8.7-10.4); Carbon Dioxide 25 mmol/L (20-31); Chloride 105 mmol/L (98-107); Sodium 137 mmol/L (136-145); Total Protein 5.7 g/dL (5.7-8.2)
[2024-05-25 13:54] LABS: Blood Urea Nitrogen 50 mg/dL (9-23); Glucose 172 mg/dL (74-106); Potassium 5.1 mmol/L (3.5-5.1)
[2024-05-25 13:58] LABS: Lactic Acid w/Reflex 2.1 mmol/L (0.4-2.0)
[2024-05-25] MEDS ORDERED: ACETAMINOPHEN 325 MG TAB PO PRN (19:45)
[2024-05-25] MEDS: SODIUM CHLORIDE 0.9% 1,000 ML IV SCH (19:45)
[2024-05-25] MEDS ORDERED: ONDANSETRON HCL 4 MG/2 ML VIAL IV PRN (19:45)
[2024-05-25] MEDS ORDERED: DEXTROSE (50%) 50ML SYRG IV PRN (19:45)
[2024-05-25] MEDS ORDERED: MORPHINE SULFATE INJ 2 MG/ml SYRG IV PRN (21:30)
[2024-05-25] MEDS ORDERED: NITROGLYCERIN 0.4 MG SL TAB SL PRN (21:30)
--- NOTE | 2024-05-25 21:34 | DVHHP2 ---
History of Present Illness Reason for Visit: Generalized weakness History of Present Illness The patient is a 78-year-old male with past medical history of PA, hypertension, and diabetes mellitus who presented to [facility] ED with complaint of generalized weakness. Patient reports symptoms progressively get worse with unsteady gait, frequent falls, mild tremors, no longer safe at home that prompted this visit. Patient was seen and evaluated in the ED, laboratory data shows WBC 7.4, platelets 192, sodium 137, potassium 5.1, BUN 50, creatinine 1.94, GFR 35, glucose 172, lactic acid 2.1 trending down to 1.3, lipase 91, TSH 125, BNP 27.78, blood pressure 120/66, heart rate 65, temperature 97.8 F, O2 saturation 99% on room air. Please see medication orders section in the computer. On my assessment, daughter at bedside, patient denied chest pain, no headache, no dizziness, no loss of consciousness, no diarrhea, no nausea, no vomiting, no fever, no chills. Patient was admitted for further evaluation and medical management. Past Medical History PA, HTN, DM Past Surgical History CABG Family History Reviewed, noncontributory to the management of this case. Past Social History The patient lives at home, denies smoking, alcohol or illicit drugs abuse. Review of Systems Constitutional: Yes: Weakness; No: Fever, Chills, Sweats, Malaise, Other Eyes: No: Pain, Vision change, Conjunctivae inflammation, Eyelid inflammation, Other, Redness ENT: No: Ear pain, Ear discharge, Nose pain, Nose discharge, Nose congestion, Mouth pain, Mouth swelling, Throat pain, Throat swelling, Other Respiratory: No: Cough, Dry, Shortness of breath, SOB with excertion, Wheezing, Hemoptysis, Pleuritic Pain, Sputum, Wheezing, Other Cardiovascular: No: Chest Pain, Palpitations, Orthopnea, Paroxysmal Noc. Dyspnea, Edema, Lt Headedness, Other Gastrointestinal: No: Nausea, Vomiting, Abdominal Pain, Diarrhea, Constipation, Melena, Hematochezia, Other Genitourinary: No Dysuria, No Frequency, No Incontinence, No Hematuria, No Retention, No Other Musculoskeletal: No: other, neck pain, shoulder pain, arm pain, back pain, hand pain, leg pain, foot pain Skin: No: Rash, Lesions, Jaundice, Bruising, Other Neurological: Weakness; No: Numbness, Incoordination, Change in speech, Conf usion, Seizures, Other Allergies: Coded Allergies: NO KNOWN ALLERGIES (Unverified , 10/12/23) Medications Current Medications Medications Dose Ordered Sig/Monica Route Start Time Stop Time Status Last Admin Dose Admin Aspirin 81 mg DAILY PO 05/26/24 10:00 Hydralazine HCl 10 mg Q6HP PRN IV 05/25/24 19:45 Clopidogrel Bisulfate 75 mg DAILY PO 05/26/24 10:00 Tamsulosin HCl 0.4 mg QPM PO 05/26/24 18:00 Diagnostic Test (Pha) 1 strip ACHS 05/25/24 22:00 Insulin Human Regular ACHS SC 05/25/24 22:00 Dextrose 50 ml UD PRN IV 05/25/24 19:45 Sodium Chloride 1,000 ml @ 60 mls/hr [id number] IV 05/25/24 19:45 Acetaminophen/ Hydrocodone Bitart 1 tab Q4HP PRN PO 05/25/24 19:45 Ondansetron HCl 4 mg Q4HP PRN IV 05/25/24 19:45 Docusate Sodium 100 mg BIDPRN PRN PO 05/25/24 19:45 Acetaminophen 650 mg Q6HP PRN PO 05/25/24 19:45 Nitroglycerin 0.4 mg Q5MINP PRN SL 05/25/24 21:30 UNV Morphine Sulfate 2 mg Q30M PRN IV 05/25/24 21:30 UNV Exam Vital Signs Vital Signs Date Time Temp Pulse Resp B/P (MAP) Pulse Ox O2 Delivery O2 Flow Rate FiO2 05/25/24 17:32 97.5 65 16 128/66 (86) 100 97.5 05/25/24 11:33 Room Air* 0 21 General Appearance: Alert, Oriented X3, Cooperative, No acute distress HEENT: Atraumatic, PERRLA, EOMI, Mucous membr. moist/pink Respiratory: Clear to auscultation, Normal air movement Cardiovascular: Regular rate, Normal S1, Normal S2, No murmurs Abdominal: Normal bowel sounds, Soft, No tenderness, No hepatospenomegaly, No masses Extremities: No clubbing, No cyanosis, No edema, Normal pulses, No tenderness/swelling Skin: No rashes, No breakdown, No significant lesion Neuro: Normal speech, Normal tone, Sensation intact, Cranial nerves 3-12 NL, Reflexes 2+, Other (Unsteady gait) Psych/Mental Status: Mental status NL, Mood NL Labs/Xrays Labs Test 05/25/24 15:19 05/25/24 13:08 Range/Units Lactic Acid Level 1.3 0.4-2.0 mmol/L White Blood Count 7.4 4.4-10.8 10^3/uL Red Blood Count 3.91 L 4.5-5.90 10^6/uL Hemoglobin 12.4 L 13.5-17.5 g/dL Hematocrit 36.0 L 41.0-53.0 % Mean Corpuscular Volume 92.2 80.0-100.0 fL Mean Corpuscular Hemoglobin 31.8 28.0-32.0 pg Mean Corpuscular Hemoglobin Concent 34.5 32.0-36.0 g/dL Red Cell Distribution Width 13.1 11.8-14.3 % Platelet Count 192 140-450 10^3/uL Mean Platelet Volume 6.8 L 6.9-10.8 fL Neutrophils (%) (Auto) 81.9 H 37.0-80.0 % Lymphocytes (%) (Auto) 9.6 L 10.0-50.0 % Monocytes (%) (Auto) 8.5 0.0-12.0 % Eosinophils (%) (Auto) 0.0 0.0-7.0 % Basophils (%) (Auto) 0.0 0.0-2.0 % Neutrophils # (Auto) 6.0 1.6-8.6 10 ^3/uL Lymphocytes # (Auto) 0.7 0.4-5.4 10 ^3/uL Monocytes # (Auto) 0.6 0-1.3 10 ^3/uL Eosinophils # (Auto) 0 0-0.8 10 ^3/uL Basophils # (Auto) 0 0-0.2 10 ^3/uL Nucleated Red Blood Cells 0.0 % Sodium Level 137 136-145 mmol/L Potassium Level 5.1 3.5-5.1 mmol/L Chloride Level 105 98-107 mmol/L Carbon Dioxide Level 25 20-31 mmol/L Anion Gap 7 5-15 Blood Urea Nitrogen 50 H 9-23 mg/dL Creatinine 1.94 H 0.700-1.30 mg/dL Glomerular Filtration Rate Calc 35 >90 mL/min BUN/Creatinine Ratio 25.8 H 10.0-20.0 Serum Glucose 172 H 74-106 mg/dL Calcium Level 9.6 8.7-10.4 mg/dL Total Bilirubin 0.4 0.2-1.0 mg/dL Direct Bilirubin 0.2 <0.3 mg/dL Aspartate Amino Transferase (AST) 15 13-40 U/L Alanine Aminotransferase (ALT) 15 7-40 U/L Alkaline Phosphatase 50 46-116 U/L B-Type Natriuretic Peptide 27.78 0-100 pg/mL Total Protein 5.7 5.7-8.2 g/dL Albumin 3.9 3.2-4.8 g/dL Lipase 91 H 12-53 U/L Thyroid Stimulating Hormone (TSH) 1.25 0.55-4.78 uIU/mL PATIENT: EMERSON GUERRERO ACCT: [id number] UNIT: [id number] : 1945 LOC: ER ROOM / BED: / AGE / SEX: 78 / M ADM STATUS: REG ER SERVICE 1212 ORDERING PHYSICIAN: ÁNGELA PENALOZA MD PROCEDURE(s): HWOCT - HEAD WITHOUT CONTRAST REASON: weakness ORDER NUMBER(s): [id number], ACCESSION NUMBER(s): [id number] EXAM: CT HEAD WITHOUT CONTRAST HISTORY: weakness COMPARISON: None TECHNIQUE: Axial images were obtained and reformatted in coronal and sagittal planes. All CT scans at this medical facility are performed using dose modulation techniques as appropriate to a performed exam including the following: Automated exposure control was utilized; adjustment of the MA and/or KV according to patient size; and use of iterative reconstruction technique. CT Dose: CTDI volume is 64 mGy. Dose-length product is 2518 mGy*cm FINDINGS: Supratentorial Region: No evidence for large acute territorial ischemia. No intracranial hemorrhage is noted. Confluent white matter hypoattenuating foci are noted bilaterally, which typically reflect chronic microvascular ischemic changes. Posterior Fossa: No acute abnormality. Brainstem: Unremarkable. Sellar/Suprasellar Region: Unremarkable. Ventricles, Cisterns, Sulci: Age-appropriate. Orbits: Unremarkable. Paranasal Sinuses: Unremarkable. Mastoid Air Cells: Unremarkable. Vasculature: Unremarkable. Bones/Soft Tissues: No acute abnormality. Other: None. IMPRESSION: 1. No acute intracranial process. Assessment/Plan Assessment/Plan Generalized weakness Frequent fall Hyperkalemia Acute on chronic renal injury Diabetes mellitus with hyperglycemia Plan 1. Admit to telemetry unit 2. Breathing treatment 3. Pain control management 4. Management of fluids and electrolytes 5. Consultation for Nephrology 6. Diagnostic tests chest x-ray 7. DVT prophylaxis-on aspirin 8. Repeat labs CBC, CMP in a.m. 9. Continue with current medical management 10. Treatment plan discussed with patient and RN. Patient/daughter verbalized understanding. Plan discussed with: Patient, Daughter, Other (RN) My Orders Orders - COOPER MOULTON DNP Procedure Category Date Status Time Consistent DIET 05/26/24 Transmitted Carb(Ccho)Diabetes Breakfast *Dr. [facility] CONS 05/25/24 Transmitted -[place] 19:40 Aspirin Tablet PHA 05/26/24 In Process 10:00 Hydralazine Injection PHA 05/25/24 In Process (Apresoline Inject 19:45 Clopidogrel Bisulfate PHA 05/26/24 In Process (Plavix) 10:00 Tamsulosin PHA 05/26/24 In Process Hydrochloride (Flomax) 18:00 Glucose Blood PHA 05/25/24 In Process (Accu-Chek Comfort 22:00 Insulin R (Human) PHA 05/25/24 In Process (Insulin R) 22:00 Dextrose 50% Syringe PHA 05/25/24 In Process 19:45 Allergies MANUEL 05/25/24 In Process 19:40 Code Status CODE 05/25/24 Transmitted 19:40 Sodium Chloride 0.9% PHA 05/25/24 In Process 19:45 Oxygen Per Hour RT 05/25/24 Transmitted 19:40 Hydrocodone-Acet PHA 05/25/24 In Process 5/325mg Tab ([place] 19:45 Ondansetron Hcl PHA 05/25/24 In Process (Zofran) 19:45 Docusate Sodium PHA 05/25/24 In Process Capsule (Colace 19:45 Fall Risk Precautions MANUEL 05/25/[address] 19:40 Complete Blood Count LAB 05/26/24 Verified 04:00 Comprehensive LAB 05/26/24 Verified Metabolic Panel 04:00 Condition: Serious MANUEL 05/25/24 In Process 19:40 Acetaminophen Tablet PHA 1/17/25 In Process (Tylenol Tablet) 19:45 Sequential [facility] 05/25/24 In Process Compression Device Admit ADMIT 05/25/24 Transmitted 21:30 Nitroglycerin [facility] 05/25/24 Logged Sublingual (Ntrostat 21:30 Morphine Sulfate [facility] 05/25/24 Logged Injection 21:30 Notify Of Changes [facility] 05/25/24 Transmitted From Base 21:30 Inventory And Pricing Associate For [facility] 05/25/24 Transmitted 24 Hours 21:30 Emergency Dysrhythmia [facility] 05/25/24 Transmitted Protocol 21:30 Rhythm Strips Once [facility] 05/25/24 Transmitted Every Shift 21:30 Oxygen By Nasal RT 05/25/24 Transmitted Cannula 21:30 Problem List: (1) Generalized weakness (2) Frequent falls (3) Hyperkalemia (4) [id number] kidney injury (5) Diabetes mellitus with hyperglycemia Date of Service: May 25, 2024 Billing Provider: COOPER MOULTON DNP Common Visit Codes: [id number] INP/OBS CARE (HIGH) COOPER MOULTON DNP May 25, 2024 21:34
[2024-05-25] MEDS: ACCU-CHEK COMFORT CURVE STRIP VI SCH (22:30)
[2024-05-25] MEDS: InsuLIN REG 1unit/0.01ml Soln (100units/ml) SC SCH (22:40)
[2024-05-26] VITALS (10 sets, daily range): BP systolic 114–156; BP diastolic 54–82; PULSE 64–102; RESP 16–20; TEMP 97.2–97.9; O2SAT 96–99
[2024-05-26 06:43] LABS: Basophils # (auto) 0 10 ^3/uL (0-0.2); Basophils % (auto) 0.1 % (0.0-2.0); Eosinophils # (auto) 0 10 ^3/uL (0-0.8); Eosinophils % (auto) 0.4 % (0.0-7.0); Hemoglobin 12.7 g/dL (13.5-17.5); Lymphocytes # (auto) 1.4 10 ^3/uL (0.4-5.4); Lymphocytes % (auto) 16.7 % (10.0-50.0); Mean Corpuscular Hemoglobin 31.7 pg (28.0-32.0); Mean Corpuscular Hgb Conc. 34.4 g/dL (32.0-36.0); Mean Corpuscular Volume 92.2 fL (80.0-100.0); Monocytes # (auto) 0.9 10 ^3/uL (0-1.3); Monocytes % (auto) 11.2 % (0.0-12.0); Neutrophils % (auto) 71.6 % (37.0-80.0); Platelet Count (auto) 158 10^3/uL (140-450); Red Blood Cells 4.01 10^6/uL (4.5-5.90); Red Cell Distribution Width 13.2 % (11.8-14.3); White Blood Cell 8.3 10^3/uL (4.4-10.8)
[2024-05-26 06:59] LABS: Alanine Aminotransferase 13 U/L (7-40); Alkaline Phosphatase 47 U/L (46-116); Anion Gap 6 (5-15); BUN/Creatinine Ratio 23.7 (10.0-20.0); Calcium 9.8 mg/dL (8.7-10.4); Carbon Dioxide 27 mmol/L (20-31); Chloride 107 mmol/L (98-107); Glucose 105 mg/dL (74-106); Potassium 4.1 mmol/L (3.5-5.1); Sodium 140 mmol/L (136-145)
[2024-05-26 07:00] LABS: Albumin 3.9 g/dL (3.2-4.8); Aspartate Aminotransferase 14 U/L (13-40)
[2024-05-26 07:01] LABS: Bilirubin, Total 0.5 mg/dL (0.2-1.0); Total Protein 5.9 g/dL (5.7-8.2)
[2024-05-26 07:06] LABS: Blood Urea Nitrogen 42 mg/dL (9-23)
[2024-05-26 08:33] LABS: Urine Bacteria None Seen /hpf (None Seen)
[2024-05-26 09:00] LABS: Urine Blood Negative /uL (Negative); Urine Clarity Turbid (Clear); Urine Color Light-Yellow (Yellow); Urine Protein, UAD Negative (Negative); Urine Specific Gravity 1.016 (1.001-1.035); Urine Squamous Epithelial Cell FEW /hpf (<5); Urine Urobilinogen Normal (Negative); Urine WBC 176 /hpf (0 - 3); Urine pH 5.5 (5.0-9.0)
[2024-05-26] MEDS: ASPirin 81 mg TAB PO SCH (10:36)
[2024-05-26] MEDS: CLOPIDOGREL BISULFATE 75 MG TAB PO SCH (10:36)
--- NOTE | 2024-05-26 13:20 | DVHPN2 ---
Reviewed: Care Plan, H&P, Labs, Medications, Previous Orders, Radiology Changes from previous H/P or p: No Changes Eyes: No Pain, No Vision change, No Conjunctivae inflammation, No Eyelid inflammation, No Other, No Redness ENT: No Ear pain, No Ear discharge, No Nose pain, No Nose discharge, No Nose congestion, No Mouth pain, No Mouth swelling, No Throat pain, No Throat swelling, No Other Cardiovascular: No Chest Pain, No Palpitations, No Orthopnea, No Paroxysmal Noc. Dyspnea, No Edema, No Lt Headedness, No Other Respiratory: No Cough, No Dry, No Shortness of breath, No SOB with excertion, No Wheezing, No Hemoptysis, No Pleuritic Pain, No Sputum, No Other Gastrointestinal: No Nausea, No Vomiting, No Abdominal Pain, No Diarrhea, No Constipation, No Melena, No Hematochezia, No Other Genitourinary: No Dysuria, No Frequency, No Incontinence, No Hematuria, No Retention, No Other Musculoskeletal: No other, No neck pain, No shoulder pain, No arm pain, No back pain, No hand pain, No leg pain, No foot pain Skin: No Rash, No Lesions, No Jaundice, No Bruising, No Other Objective Vitals Vital Signs Date Time Temp Pulse Resp B/P (MAP) Pulse Ox O2 Delivery O2 Flow Rate FiO2 05/26/24 09:00 97.6 87 17 139/82 (101) 96 97.6 05/26/24 02:50 Room Air* 0 21 Intake/Output Intake and Output 05/26/24 07:00 Intake Total 1000 ml Balance 1000 ml Intake Oral 0 ml IV Total 1000 ml Medications Current Medications Medications Dose Ordered Sig/Monica Route Start Time Stop Time Status Last Admin Dose Admin Aspirin 81 mg DAILY PO 05/26/24 10:00 05/26/24 10:36 81 MG Hydralazine HCl 10 mg Q6HP PRN IV 05/25/24 19:45 Clopidogrel Bisulfate 75 mg DAILY PO 05/26/24 10:00 05/26/24 10:36 75 MG Tamsulosin HCl 0.4 mg QPM PO 05/26/24 18:00 Diagnostic Test (Pha) 1 strip ACHS 05/25/24 22:00 05/26/24 11:30 1 STRIP Insulin Human Regular ACHS SC 05/25/24 22:00 05/25/24 22:40 2 UNITS Dextrose 50 ml UD PRN IV 05/25/24 19:45 Sodium Chloride 1,000 ml @ 60 mls/hr [id number] IV 05/25/24 19:45 Acetaminophen/ Hydrocodone Bitart 1 tab Q4HP PRN PO 05/25/24 19:45 Ondansetron HCl 4 mg Q4HP PRN IV 05/25/24 19:45 Docusate Sodium 100 mg BIDPRN PRN PO 05/25/24 19:45 Acetaminophen 650 mg Q6HP PRN PO 05/25/24 19:45 Nitroglycerin 0.4 mg Q5MINP PRN SL 05/25/24 21:30 Morphine Sulfate 2 mg Q30M PRN IV 05/25/24 21:30 Laboratory Results Laboratory Tests 05/26/24 05:49 Chemistry Test 05/26/24 05:49 Albumin 3.9 g/dL (3.2-4.8) Calcium Level 9.8 mg/dL (8.7-10.4) Total Protein 5.9 g/dL (5.7-8.2) LFT Test 05/26/24 05:49 Alanine Aminotransferase (ALT) 13 U/L (7-40) Alkaline Phosphatase 47 U/L (46-116) Aspartate Amino Transferase (AST) 14 U/L (13-40) Total Bilirubin 0.5 mg/dL (0.2-1.0) Urinalysis Test 05/26/24 07:20 Urine Color Light-yellow (Yellow) Urine Clarity Turbid (Clear) H Urine pH 5.5 (5.0-9.0) Urine Specific [place] 1.016 (1.001-1.035) Urine Protein Negative (Negative) Urine Ketones Negative (Negative) Urine Blood Negative /uL (Negative) Urine Nitrite Negative (Negative) Urine Bilirubin Negative (Negative) Urine Urobilinogen Normal mg/dL (Negative) Urine Leukocyte Esterase 3+ /uL (Negative) Urine RBC 16 /hpf (0 - 3) Urine WBC 176 /hpf (0 - 3) Urine Squamous Epithelial Cells Few /hpf (<5) Urine Bacteria None seen /hpf (None Seen) Urine Glucose Normal mg/dL (Normal) Labs and/or images reviewed: Labs reviewed by me, Image(s) reviewed by me Assessment/Plan Assessment/Plan Sepsis secondary to acute urinary tract infection Acute urinary tract infection: Blood cultures urine cultures Rocephin Acute metabolic encephalopathy Acute lactic acidosis Acute History of NV: Continue aspirin Plavix History of hypertension Diabetes: Insulin sliding scale Diabetic neuropathy nephropathy vasculopathy History of CABG BPH Frequent falls Generalized weakness Severe malnutrition Time spent 65 minutes Patient is full code Advanced care planning time 20 minutes Daughter Milan [phone] at bedside Plan discussed with: Patient My Orders Orders - CHAPIN BUTLER MD Procedure Category Date Status Time Blood Culture SHRAVAN 05/26/24 Transmitted 13:15 Urine Bacterial SHRAVAN 05/26/24 Transmitted Culture 13:15 Date of Service: May 26, 2024 Billing Provider: CHAPIN BUTLER MD Common Visit Codes: [id number] CARE 30-74 MIN CHAPIN BUTLER MD May 26, 2024 13:20
[2024-05-26] MEDS: cefTRIAXone 1GM/50ML D5W 50 ML IV ONE (13:30)
--- NOTE | 2024-05-26 16:24 | DVHINCON2 ---
Date of service: May 26, 2024 Reason for Consultation EDUARDO History of Present Illness 78 years old male with past medical history of Chronic kidney disease IIIb, coronary artery disease, diabetes, hypertension, presented with chief complaints of multiple falls, patient's daughter is at bedside she reports patient had at least eight falls in the past one week and has several bruises patient denies any urinary complaints denies loss of consciousness denies any chest pain Patient reports taking Ozempic and lost 60 lb recently Past Medical History As per HPI Past Surgical History As per HPI Allergies: Coded Allergies: NO KNOWN ALLERGIES (Unverified , 10/12/23) Home Meds Reported Medications Semaglutide (Ozempic) 2 Mg/3 Ml Inj, 1 MG SC QWEEKLY, INJ 10/12/23 Clopidogrel Bisulfate (Plavix) 75 Mg Tab, 1 TAB PO every other day, #90 TAB 1 Refill 10/12/23 Tamsulosin Hcl (Tamsulosin Hcl) 0.4 Mg Cap, 0.4 MG PO QPM for bph for 30 Days, MG 10/12/23 Alirocumab (Praluent) 75 Mg/Ml Inj, 75 MG SC QWEEKLY for EVERY OTHER TUESDAY, INJ 10/12/23 Oxycodone W/ Acetaminophen (Percocet 5/325MG) 1 Tab Tb, 1 TAB PO QID for pain, #120 TAB 10/12/23 Temazepam (Temazepam) 30 Mg Cap, 1 CAP PO QPM for sleep, #30 CAP 1 Refill 10/12/23 Patients Own Medication (PATIENTS OWN MEDICATION) ., 2 GM PO BID for lovaza PTS OWN MED-OBTAIN FROM PT AND SEND TO RX DRUG: FREQ: RX# EXP: DATE DISP: TECH: RPH: 10/12/23 Nitroglycerin (Nitrostat) 0.4 Mg Sub, 0.4 MG SL PRN for cheast pain, INJ 10/12/23 Amlodipine Besylate (Amlodipine Besylate) 10 Mg Tab, 1 TAB PO DAILY, #30 TAB 5 Refills 06/25/19 Finasteride (Finasteride) 5 Mg Tab, 5 MG PO DAILY for 30 Days, MG 06/25/19 Furosemide (Furosemide) 20 Mg Tab, 20 MG PO DAILY for 30 Days, MG 06/25/19 Fenofibrate (Fenofibrate) 160 Mg Tab, 1 TAB PO DAILY, #30 TAB 5 Refills 06/25/19 Calcitriol (Calcitriol) 0.25 Mcg Cap, 0.25 MCG PO DAILY for 30 Days, MCG 06/25/19 Amitriptyline Hcl (Amitriptyline Hcl) 25 Mg Tab, 25 MG PO HS for 30 Days, MG 06/25/19 Losartan Potassium (Losartan Potassium) 25 Mg Tab, 25 MG PO DAILY for 30 Days, MG 06/25/19 Aspirin (Aspir-Low) 81 Mg Tab, 81 MG PO DAILY for 30 Days, MG 06/25/19 Gabapentin (Gabapentin) 100 Mg Cap, 200 MG PO BID, CAP 03/29/13 Glyburide (Glyburide) 1.25 Mg Tab, 1.25 MG PO BID, TAB 03/29/13 Current Medications Current Medications Medications (Trade) Dose Ordered Sig/Monica Route PRN Reason Start Time Stop Time Status Last Admin Aspirin 81 mg DAILY PO 05/26/24 10:00 05/26/24 10:36 Hydralazine HCl (Apresoline Injection) 10 mg Q6HP PRN IV SBP>150 05/25/24 19:45 Clopidogrel Bisulfate (Plavix) 75 mg DAILY PO 05/26/24 10:00 05/26/24 10:36 Tamsulosin HCl (Flomax) 0.4 mg QPM PO 05/26/24 18:00 Diagnostic Test (Pha) (Accu-Chek Comfort Curve T) 1 strip ACHS 05/25/24 22:00 05/26/24 11:30 Insulin Human Regular (InsuLIN R) ACHS SC 05/25/24 22:00 05/25/24 22:40 Dextrose 50 ml UD PRN IV Blood Sugar LESS THAN 60 05/25/24 19:45 Sodium Chloride 1,000 ml @ 60 mls/hr [id number] IV 05/25/24 19:45 Acetaminophen/ Hydrocodone Bitart ([place] 5/325MG Tab) 1 tab Q4HP PRN PO MODERATE PAIN (4-6 PAIN SCALE) 05/25/24 19:45 Ondansetron HCl (Zofran) 4 mg Q4HP PRN IV NAUSEA / VOMITING 05/25/24 19:45 Docusate Sodium (Colace Capsule) 100 mg BIDPRN PRN PO FOR CONSTIPATION 05/25/24 19:45 Acetaminophen (Tylenol Tablet) 650 mg Q6HP PRN PO PAIN SCALE 1-3 OR TEMP>100.4 05/25/24 19:45 Nitroglycerin (Ntrostat Sublingual) 0.4 mg Q5MINP PRN SL FOR CHEST PAIN 05/25/24 21:30 Morphine Sulfate 2 mg Q30M PRN IV FOR CHEST PAIN 05/25/24 21:30 Ceftriaxone Sodium 50 ml @ 100 mls/hr DAILY@09 IV 05/27/24 09:00 Family History: FH: heart attack G8 FATHER, , Age: 50's - 60 Peritonitis G8 MOTHER, , Age: 50's - 60 Social History Denies any Review of Systems As mentioned in HPI otherwise negative H&P Exam Vital Signs/I&O Vital Sign Date Time Temp Pulse Resp B/P (MAP) Pulse Ox O2 Delivery O2 Flow Rate FiO2 05/26/24 13:00 97.9 94 19 114/77 (89) 97 97.9 05/26/24 02:50 Room Air* 0 21 Intake and Output 05/25/24 05/26/24 19:00 07:00 Intake Total 1000 ml 0 ml Balance 1000 ml 0 ml Intake Oral 0 ml IV Total 1000 ml Physical Exam General-not in any distress HEENT-normocephalic, no icterus, no pallor, neck supple Respiratory-fair air entry bilateral, no rhonchi, no wheeze [id number] heard, Abdominal-soft, nontender, nondistended Musculoskeletal-no pedal edema, no calf tenderness Genitourinary-deferred Neuro-awake alert oriented x3, Psychiatric-not agitated, cooperative, Labs/Diagnostic Data Labs/Diagnostic Data Laboratory Tests Test 05/26/24 11:54 05/26/24 07:20 05/26/24 05:49 05/25/24 22:34 Range/Units POC Glucose 113 H 143 H 70-106 mg/dl Urine Color Light-yellow Yellow Urine Clarity Turbid H Clear Urine pH 5.5 5.0-9.0 Urine Specific [place] 1.016 1.001-1.035 Urine Protein Negative Negative Urine Ketones Negative Negative Urine Blood Negative Negative /uL Urine Nitrite Negative Negative Urine Bilirubin Negative Negative Urine Urobilinogen Normal Negative mg/dL Urine Leukocyte Esterase 3+ Negative /uL Urine RBC 16 0 - 3 /hpf Urine WBC 176 0 - 3 /hpf Urine Squamous Epithelial Cells Few <5 /hpf Urine Bacteria None seen None Seen /hpf Urine Glucose Normal Normal mg/dL White Blood Count 8.3 4.4-10.8 10^3/uL Red Blood Count 4.01 L 4.5-5.90 10^6/uL Hemoglobin 12.7 L 13.5-17.5 g/dL Hematocrit 37.0 L 41.0-53.0 % Mean Corpuscular Volume 92.2 80.0-100.0 fL Mean Corpuscular Hemoglobin 31.7 28.0-32.0 pg Mean Corpuscular Hemoglobin Concent 34.4 32.0-36.0 g/dL Red Cell Distribution Width 13.2 11.8-14.3 % Platelet Count 158 140-450 10^3/uL Mean Platelet Volume 6.8 L 6.9-10.8 fL Neutrophils (%) (Auto) 71.6 37.0-80.0 % Lymphocytes (%) (Auto) 16.7 10.0-50.0 % Monocytes (%) (Auto) 11.2 0.0-12.0 % Eosinophils (%) (Auto) 0.4 0.0-7.0 % Basophils (%) (Auto) 0.1 0.0-2.0 % Neutrophils # (Auto) 6.0 1.6-8.6 10 ^3/uL Lymphocytes # (Auto) 1.4 0.4-5.4 10 ^3/uL Monocytes # (Auto) 0.9 0-1.3 10 ^3/uL Eosinophils # (Auto) 0 0-0.8 10 ^3/uL Basophils # (Auto) 0 0-0.2 10 ^3/uL Nucleated Red Blood Cells 0.0 % Sodium Level 140 136-145 mmol/L Potassium Level 4.1 3.5-5.1 mmol/L Chloride Level 107 98-107 mmol/L Carbon Dioxide Level 27 20-31 mmol/L Anion Gap 6 5-15 Blood Urea Nitrogen 42 H 9-23 mg/dL Creatinine 1.77 H 0.700-1.30 mg/dL Glomerular Filtration Rate Calc 39 >90 mL/min BUN/Creatinine Ratio 23.7 H 10.0-20.0 Serum Glucose 105 74-106 mg/dL Calcium Level 9.8 8.7-10.4 mg/dL Total Bilirubin 0.5 0.2-1.0 mg/dL Aspartate Amino Transferase (AST) 14 13-40 U/L Alanine Aminotransferase (ALT) 13 7-40 U/L Alkaline Phosphatase 47 46-116 U/L Total Protein 5.9 5.7-8.2 g/dL Albumin 3.9 3.2-4.8 g/dL Test 05/25/24 15:19 05/25/24 13:08 Range/Units Lactic Acid Level 1.3 2.1 *H 0.4-2.0 mmol/L White Blood Count 7.4 4.4-10.8 10^3/uL Red Blood Count 3.91 L 4.5-5.90 10^6/uL Hemoglobin 12.4 L 13.5-17.5 g/dL Hematocrit 36.0 L 41.0-53.0 % Mean Corpuscular Volume 92.2 80.0-100.0 fL Mean Corpuscular Hemoglobin 31.8 28.0-32.0 pg Mean Corpuscular Hemoglobin Concent 34.5 32.0-36.0 g/dL Red Cell Distribution Width 13.1 11.8-14.3 % Platelet Count 192 140-450 10^3/uL Mean Platelet Volume 6.8 L 6.9-10.8 fL Neutrophils (%) (Auto) 81.9 H 37.0-80.0 % Lymphocytes (%) (Auto) 9.6 L 10.0-50.0 % Monocytes (%) (Auto) 8.5 0.0-12.0 % Eosinophils (%) (Auto) 0.0 0.0-7.0 % Basophils (%) (Auto) 0.0 0.0-2.0 % Neutrophils # (Auto) 6.0 1.6-8.6 10 ^3/uL Lymphocytes # (Auto) 0.7 0.4-5.4 10 ^3/uL Monocytes # (Auto) 0.6 0-1.3 10 ^3/uL Eosinophils # (Auto) 0 0-0.8 10 ^3/uL Basophils # (Auto) 0 0-0.2 10 ^3/uL Nucleated Red Blood Cells 0.0 % Sodium Level 137 136-145 mmol/L Potassium Level 5.1 3.5-5.1 mmol/L Chloride Level 105 98-107 mmol/L Carbon Dioxide Level 25 20-31 mmol/L Anion Gap 7 5-15 Blood Urea Nitrogen 50 H 9-23 mg/dL Creatinine 1.94 H 0.700-1.30 mg/dL Glomerular Filtration Rate Calc 35 >90 mL/min BUN/Creatinine Ratio 25.8 H 10.0-20.0 Serum Glucose 172 H 74-106 mg/dL Calcium Level 9.6 8.7-10.4 mg/dL Total Bilirubin 0.4 0.2-1.0 mg/dL Direct Bilirubin 0.2 <0.3 mg/dL Aspartate Amino Transferase (AST) 15 13-40 U/L Alanine Aminotransferase (ALT) 15 7-40 U/L Alkaline Phosphatase 50 46-116 U/L B-Type Natriuretic Peptide 27.78 0-100 pg/mL Total Protein 5.7 5.7-8.2 g/dL Albumin 3.9 3.2-4.8 g/dL Lipase 91 H 12-53 U/L Thyroid Stimulating Hormone (TSH) 1.25 0.55-4.78 uIU/mL Assessment Chronic kidney disease IIIb--follows Dr. Aguirre as outpatient Frequent falls HTN Recommendations Stable renal function Cardiology and neuro evaluation Avoid hypotension Plan discussed with: Patient, Daughter MARLENY TOBIAS MD May 26, 2024 16:24
[2024-05-26] MEDS: TAMSULOSIN HYDROCHLORIDE 0.4 MG CAP PO SCH (18:00)
[2024-05-27] VITALS (9 sets, daily range): BP systolic 108–164; BP diastolic 70–86; PULSE 60–84; RESP 16–18; TEMP 97.5–98; O2SAT 95–98
[2024-05-27] MEDS ORDERED: ALPR0.5T8 (04:19)
[2024-05-27] MEDS: cefTRIAXone 1GM/50ML D5W 50 ML IV SCH (10:43)
[2024-05-27] MEDS: ALPRAZolam 0.5 MG TAB PO PRN (10:43)
--- NOTE | 2024-05-27 12:30 | DVHPN2 ---
Reviewed: Care Plan, H&P, Labs, Medications, Previous Orders, Radiology Changes from previous H/P or p: No Changes Eyes: No Pain, No Vision change, No Conjunctivae inflammation, No Eyelid inflammation, No Other, No Redness ENT: No Ear pain, No Ear discharge, No Nose pain, No Nose discharge, No Nose congestion, No Mouth pain, No Mouth swelling, No Throat pain, No Throat swelling, No Other Cardiovascular: No Chest Pain, No Palpitations, No Orthopnea, No Paroxysmal Noc. Dyspnea, No Edema, No Lt Headedness, No Other Respiratory: No Cough, No Dry, No Shortness of breath, No SOB with excertion, No Wheezing, No Hemoptysis, No Pleuritic Pain, No Sputum, No Other Gastrointestinal: No Nausea, No Vomiting, No Abdominal Pain, No Diarrhea, No Constipation, No Melena, No Hematochezia, No Other Genitourinary: No Dysuria, No Frequency, No Incontinence, No Hematuria, No Retention, No Other Musculoskeletal: No other, No neck pain, No shoulder pain, No arm pain, No back pain, No hand pain, No leg pain, No foot pain Skin: No Rash, No Lesions, No Jaundice, No Bruising, No Other Objective Vitals Vital Signs Date Time Temp Pulse Resp B/P (MAP) Pulse Ox O2 Delivery O2 Flow Rate FiO2 05/27/24 09:30 98.0 82 16 149/77 (101) 98 98.0 05/26/24 20:10 Room Air* 0 21 Intake/Output Intake and Output 05/27/24 07:00 Intake Total 1250 ml Output Total 400 ml Balance 850 ml Intake Oral 1250 ml Output Urine Total 400 ml # Voids 4 Medications Current Medications Medications Dose Ordered Sig/Monica Route Start Time Stop Time Status Last Admin Dose Admin Aspirin 81 mg DAILY PO 05/26/24 10:00 05/27/24 10:43 81 MG Hydralazine HCl 10 mg Q6HP PRN IV 05/25/24 19:45 Clopidogrel Bisulfate 75 mg DAILY PO 05/26/24 10:00 05/27/24 10:43 75 MG Tamsulosin HCl 0.4 mg QPM PO 05/26/24 18:00 05/26/24 18:00 0.4 MG Diagnostic Test (Pha) 1 strip ACHS 05/25/24 22:00 05/27/24 11:30 1 STRIP Insulin Human Regular ACHS SC 05/25/24 22:00 05/27/24 12:07 2 UNITS Dextrose 50 ml UD PRN IV 05/25/24 19:45 Sodium Chloride 1,000 ml @ 60 mls/hr [id number] IV 05/25/24 19:45 05/27/24 05:11 60 MLS/HR Acetaminophen/ Hydrocodone Bitart 1 tab Q4HP PRN PO 05/25/24 19:45 Ondansetron HCl 4 mg Q4HP PRN IV 05/25/24 19:45 Docusate Sodium 100 mg BIDPRN PRN PO 05/25/24 19:45 Acetaminophen 650 mg Q6HP PRN PO 05/25/24 19:45 Nitroglycerin 0.4 mg Q5MINP PRN SL 05/25/24 21:30 Morphine Sulfate 2 mg Q30M PRN IV 05/25/24 21:30 Ceftriaxone Sodium 50 ml @ 100 mls/hr DAILY@09 IV 05/27/24 09:00 05/27/24 10:43 100 MLS/HR Alprazolam 0.5 mg Q8HPRN PRN PO 05/27/24 09:00 05/27/24 10:43 0.5 MG Temazepam 30 mg HSPRN PRN PO 05/27/24 09:00 Amitriptyline HCl 25 mg HS PO 05/27/24 22:00 Laboratory Results Laboratory Tests 05/26/24 05:49 Urinalysis Test 05/26/24 07:20 Urine Color Light-yellow (Yellow) Urine Clarity Turbid (Clear) H Urine pH 5.5 (5.0-9.0) Urine Specific [place] 1.016 (1.001-1.035) Urine Protein Negative (Negative) Urine Ketones Negative (Negative) Urine Blood Negative /uL (Negative) Urine Nitrite Negative (Negative) Urine Bilirubin Negative (Negative) Urine Urobilinogen Normal mg/dL (Negative) Urine Leukocyte Esterase 3+ /uL (Negative) Urine RBC 16 /hpf (0 - 3) Urine WBC 176 /hpf (0 - 3) Urine Squamous Epithelial Cells Few /hpf (<5) Urine Bacteria None seen /hpf (None Seen) Urine Glucose Normal mg/dL (Normal) Microbiology Microbiology Date/Time Source Procedure Growth Status 05/26/24 07:20 Voided Urine Urine Culture - Preliminary Resulted Labs and/or images reviewed: Labs reviewed by me, Image(s) reviewed by me Assessment/Plan Assessment/Plan Sepsis secondary to acute urinary tract infection Acute urinary tract infection: Blood cultures pending, urine cultures mixed, Rocephin Acute metabolic encephalopathy Acute lactic acidosis Acute History of CT: Continue aspirin Plavix History of hypertension Diabetes: Insulin sliding scale Diabetic neuropathy nephropathy vasculopathy History of CABG BPH Frequent falls Generalized weakness Severe malnutrition Time spent 55 minutes Patient is full code Advanced care planning time 20 minutes Daughter Milan [phone] at bedside Plan discussed with: Patient My Orders Orders - CHAPIN BUTLER MD Procedure Category Date Status Time Blood Culture SHRAVAN 05/26/24 In Process 13:15 Urine Bacterial SHRAVAN 05/26/24 In Process Culture 13:15 Ceftriaxone 1gm/50ml PHA 05/27/24 In Process D5w (Rocephin) 09:00 Alprazolam Tablet PHA 05/27/24 In Process (Xanax Tablet) 09:00 Temazepam (Restoril) PHA 05/27/24 In Process 09:00 Amitriptyline Hcl PHA 05/27/24 In Process Tablet (Elavil Tablet) 22:00 Date of Service: May 27, 2024 Billing Provider: CHAPIN BUTLER MD Common Visit Codes: [id number] INP/OBS CARE(HIGH) CHAPIN BUTLER MD May 27, 2024 12:30
--- NOTE | 2024-05-27 13:38 | DVHPN2 ---
Progress Note Date Seen: May 27, 2024 Medical Necessity Reason Pt with a Central, PICC or Fol: No Subjective Patient reports: No new complaints Review of Systems: Deferred Objective vital signs Vital Sign Date Time Temp Pulse Resp B/P (MAP) Pulse Ox O2 Delivery O2 Flow Rate FiO2 05/27/24 09:30 98.0 82 16 149/77 (101) 98 98.0 05/26/24 20:10 Room Air* 0 21 Total Intake and Output 05/26/24 05/26/24 05/27/24 15:00 23:00 07:00 Intake Total 650 ml 600 ml Output Total 400 ml Balance 650 ml 200 ml medications Current Medications Medications Dose Ordered Sig/Monica Route Start Time Stop Time Status Last Admin Dose Admin Aspirin 81 mg DAILY PO 05/26/24 10:00 05/27/24 10:43 81 MG Hydralazine HCl 10 mg Q6HP PRN IV 05/25/24 19:45 Clopidogrel Bisulfate 75 mg DAILY PO 05/26/24 10:00 05/27/24 10:43 75 MG Tamsulosin HCl 0.4 mg QPM PO 05/26/24 18:00 05/26/24 18:00 0.4 MG Diagnostic Test (Pha) 1 strip ACHS 05/25/24 22:00 05/27/24 11:30 1 STRIP Insulin Human Regular ACHS SC 05/25/24 22:00 05/27/24 12:07 2 UNITS Dextrose 50 ml UD PRN IV 05/25/24 19:45 Sodium Chloride 1,000 ml @ 60 mls/hr [id number] IV 05/25/24 19:45 05/27/24 05:11 60 MLS/HR Acetaminophen/ Hydrocodone Bitart 1 tab Q4HP PRN PO 05/25/24 19:45 Ondansetron HCl 4 mg Q4HP PRN IV 05/25/24 19:45 Docusate Sodium 100 mg BIDPRN PRN PO 05/25/24 19:45 Acetaminophen 650 mg Q6HP PRN PO 05/25/24 19:45 Nitroglycerin 0.4 mg Q5MINP PRN SL 05/25/24 21:30 Morphine Sulfate 2 mg Q30M PRN IV 05/25/24 21:30 Ceftriaxone Sodium 50 ml @ 100 mls/hr DAILY@09 IV 05/27/24 09:00 05/27/24 10:43 100 MLS/HR Alprazolam 0.5 mg Q8HPRN PRN PO 05/27/24 09:00 05/27/24 10:43 0.5 MG Temazepam 30 mg HSPRN PRN PO 05/27/24 09:00 Amitriptyline HCl 25 mg HS PO 05/27/24 22:00 laboratory and microbiology Laboratory Tests 05/26/24 05:49 Test 05/26/24 05:49 Range/Units Serum Glucose 105 74-106 mg/dL Microbiology Date/Time Source Procedure Growth Status 05/26/24 07:20 Voided Urine Urine Culture - Preliminary Resulted Problem List/Assessment/Plan Problem List/Assessment/Plan Chronic kidney disease IIIb--follows Dr. Aguirre as outpatient Frequent falls HTN UTI Recommendations Stable renal function Cardiology and neuro evaluation Avoid hypotension kidney us Plan discussed with: Patient MARLENY TOBIAS MD May 27, 2024 13:38
[2024-05-27] MEDS: AMITRIPTYLINE HCL 25 MG TAB PO SCH (22:11)
[2024-05-27] MEDS: TEMAZEPAM 15 MG CAP PO PRN (22:11)
[2024-05-28] VITALS (7 sets, daily range): BP systolic 109–167; BP diastolic 61–78; PULSE 59–94; RESP 16–20; TEMP 97.3–98.9; O2SAT 94–98
[2024-05-28] MEDS: hydrALAZINE HCL 20 MG/ML VL IV PRN (09:16)
--- NOTE | 2024-05-28 12:09 | DVH ---
US KIDNEY HISTORY: linda COMPARISON: None TECHNIQUE: Transverse and longitudinal grayscale and color Doppler images were obtained of the kidney s and bladder. FINDINGS: Right kidney: Size: 10.6 cm Cortical thickness: Normal Echogenicity: Increased Stones: None Masses: 1.6 cm cyst. Hydronephrosis: None Ureters: Not well visualized. Other: None Left kidney: Size: 12.8 cm Cortical thickness: Normal Echogenicity: Increased Stones: 1.0 cm stone. Masses: None Hydronephrosis: None Ureters: Not well visualized. Other: None Bladder: 2.3 cm bladder stone. Other: None. IMPRESSION: 2.3 cm bladder stone. 1.0 cm stone in the left kidney that is nonobstructive. Bilateral echogenic kidneys can be seen with medical renal disease.
--- NOTE | 2024-05-28 12:46 | DVHPN2 ---
Progress Note - Dictate Date Seen: May 27, 2024 Medical Necessity Reason Pt with a Central, PICC or Fol: No Subjective PT WITH SS COMPLEX WEAKNESS LETHARGY HYPERKALEMIA VOLUME DEPLETION POSSIBLE SEPSIS PMH; ORGANIC HD ISCHEMIC CM HX OF [place] S/P CABG EXTENSIVE SMALL VESSEL DZ CONT PLAVIX HTN DIABETES 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 vital signs Vital Sign Date Time Temp Pulse Resp B/P (MAP) Pulse Ox O2 Delivery O2 Flow Rate FiO2 05/28/24 09:16 167/88 05/28/24 09:09 97.9 61 16 94 97.9 05/28/24 08:00 Room Air* 0 21 Total Intake and Output 05/27/24 05/27/24 05/28/24 15:00 23:00 07:00 Intake Total 450 ml Balance 450 ml medications Current Medications Medications Dose Ordered Sig/Monica Route Start Time Stop Time Status Last Admin Dose Admin Aspirin 81 mg DAILY PO 05/26/24 10:00 05/28/24 09:16 81 MG Hydralazine HCl 10 mg Q6HP PRN IV 05/25/24 19:45 05/28/24 09:16 10 MG Clopidogrel Bisulfate 75 mg DAILY PO 05/26/24 10:00 05/28/24 09:16 75 MG Tamsulosin HCl 0.4 mg QPM PO 05/26/24 18:00 05/27/24 18:24 0.4 MG Diagnostic Test (Pha) 1 strip ACHS 05/25/24 22:00 05/28/24 11:34 1 STRIP Insulin Human Regular ACHS SC 05/25/24 22:00 05/27/24 12:07 2 UNITS Dextrose 50 ml UD PRN IV 05/25/24 19:45 Sodium Chloride 1,000 ml @ 60 mls/hr [id number] IV 05/25/24 19:45 05/27/24 22:11 60 MLS/HR Acetaminophen/ Hydrocodone Bitart 1 tab Q4HP PRN PO 05/25/24 19:45 Ondansetron HCl 4 mg Q4HP PRN IV 05/25/24 19:45 Docusate Sodium 100 mg BIDPRN PRN PO 05/25/24 19:45 Acetaminophen 650 mg Q6HP PRN PO 05/25/24 19:45 Nitroglycerin 0.4 mg Q5MINP PRN SL 05/25/24 21:30 Morphine Sulfate 2 mg Q30M PRN IV 05/25/24 21:30 Ceftriaxone Sodium 50 ml @ 100 mls/hr DAILY@09 IV 05/27/24 09:00 05/28/24 09:16 100 MLS/HR Alprazolam 0.5 mg Q8HPRN PRN PO 05/27/24 09:00 05/28/24 09:46 0.5 MG Temazepam 30 mg HSPRN PRN PO 05/27/24 09:00 05/27/24 22:11 30 MG Amitriptyline HCl 25 mg HS PO 05/27/24 22:00 05/27/24 22:11 25 MG laboratory and microbiology Laboratory Tests 05/26/24 05:49 Test 05/26/24 05:49 Range/Units Serum Glucose 105 74-106 mg/dL Problem List SS COMPLEX WEAKNESS LETHARGY HYPERKALEMIA VOLUME DEPLETION POSSIBLE SEPSIS PMH; ORGANIC HD ISCHEMIC CM HX OF [place]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
[2024-05-28 13:57] LABS: Magnesium 1.7 mg/dL (1.6-2.6)
[2024-05-28 13:58] LABS: Phosphorus 2.7 mg/dL (2.4-5.1)
--- NOTE | 2024-05-28 16:43 | DVHPN2 ---
Progress Note Date Seen: May 28, 2024 Medical Necessity Reason Pt with a Central, PICC or Fol: No Subjective Patient reports: No new complaints Other Systems: Patient seen and examined by myself today in f/u Objective vital signs Vital Sign Date Time Temp Pulse Resp B/P (MAP) Pulse Ox O2 Delivery O2 Flow Rate FiO2 05/28/24 12:43 98.4 59 16 151/76 (101) 98 98.4 05/28/24 08:00 Room Air* 0 21 Total Intake and Output 05/27/24 05/27/24 05/28/24 15:00 23:00 07:00 Intake Total 450 ml Balance 450 ml medications Current Medications Medications Dose Ordered Sig/Monica Route Start Time Stop Time Status Last Admin Dose Admin Aspirin 81 mg DAILY PO 05/26/24 10:00 05/28/24 09:16 81 MG Hydralazine HCl 10 mg Q6HP PRN IV 05/25/24 19:45 05/28/24 09:16 10 MG Clopidogrel Bisulfate 75 mg DAILY PO 05/26/24 10:00 05/28/24 09:16 75 MG Tamsulosin HCl 0.4 mg QPM PO 05/26/24 18:00 05/27/24 18:24 0.4 MG Diagnostic Test (Pha) 1 strip ACHS 05/25/24 22:00 05/28/24 11:34 1 STRIP Insulin Human Regular ACHS SC 05/25/24 22:00 05/27/24 12:07 2 UNITS Dextrose 50 ml UD PRN IV 05/25/24 19:45 Sodium Chloride 1,000 ml @ 60 mls/hr [id number] IV 05/25/24 19:45 05/28/24 14:25 60 MLS/HR Acetaminophen/ Hydrocodone Bitart 1 tab Q4HP PRN PO 05/25/24 19:45 Ondansetron HCl 4 mg Q4HP PRN IV 05/25/24 19:45 Docusate Sodium 100 mg BIDPRN PRN PO 05/25/24 19:45 Acetaminophen 650 mg Q6HP PRN PO 05/25/24 19:45 Nitroglycerin 0.4 mg Q5MINP PRN SL 05/25/24 21:30 Morphine Sulfate 2 mg Q30M PRN IV 05/25/24 21:30 Ceftriaxone Sodium 50 ml @ 100 mls/hr DAILY@09 IV 05/27/24 09:00 05/28/24 09:16 100 MLS/HR Alprazolam 0.5 mg Q8HPRN PRN PO 05/27/24 09:00 05/28/24 09:46 0.5 MG Temazepam 30 mg HSPRN PRN PO 05/27/24 09:00 05/27/24 22:11 30 MG Amitriptyline HCl 25 mg HS PO 05/27/24 22:00 05/27/24 22:11 25 MG Examination: LUNGS:Normal, CVS:Normal, MSK:Normal laboratory and microbiology Laboratory Tests 05/26/24 05:49 Test 05/26/24 05:49 Range/Units Serum Glucose 105 74-106 mg/dL Microbiology Date/Time Source Procedure Growth Status 05/26/24 14:21 Blood Blood Culture - Preliminary NO GROWTH AFTER 48 HOURS OF INCUBATION. Resulted 05/26/24 07:20 Voided Urine Urine Culture - Final Complete Problem List/Assessment/Plan Problem List/Assessment/Plan EDUARDO superimposed on Chronic kidney disease IIIb- Frequent falls Non obstructing left kidney stone HTN UTI Recommendations Kidney function is improving Cardiology and neuro evaluation Avoid hypotension IV Abx kidney us b/l echogenic kidneys will continue to follow Plan discussed with: Patient My Orders My Orders Orders - GILBERTO DAILEY MD Procedure Category Date Status Time Kidney US 05/28/24 Resulted 10:56 Urine Sodium LAB 05/28/24 Logged 10:56 Urine LAB 05/28/24 Logged Protein/Creatinine Urine Creatinine LAB 05/28/24 Logged 10:56 GILBERTO DAILEY MD May 28, 2024 16:43
[2024-05-29 05:00] VITALS: BP 142/72; PULSE 77; RESP 18; TEMP 98.3; O2SAT 92
[2024-05-29 08:00] VITALS: BP 155/80; PULSE 88; PULSE 93; RESP 18; TEMP 99.9; O2SAT 90
[2024-05-29] MEDS: LORazepam 2MG/ML-1ML VIAL IV PRN (10:18)
[2024-05-29 10:46] LABS: Hematocrit 37.5 % (41.0-53.0); Hemoglobin 12.8 g/dL (13.5-17.5); Mean Corpuscular Hemoglobin 31.5 pg (28.0-32.0); Mean Corpuscular Hgb Conc. 34.3 g/dL (32.0-36.0); Mean Corpuscular Volume 91.8 fL (80.0-100.0); Platelet Count (auto) 136 10^3/uL (140-450); Red Blood Cells 4.08 10^6/uL (4.5-5.90); Red Cell Distribution Width 13.2 % (11.8-14.3); White Blood Cell 3.5 10^3/uL (4.4-10.8)
[2024-05-29 10:56] LABS: Alanine Aminotransferase 15 U/L (7-40); Albumin 3.5 g/dL (3.2-4.8); Alkaline Phosphatase 49 U/L (46-116); Anion Gap 9 (5-15); Aspartate Aminotransferase 18 U/L (13-40); BUN/Creatinine Ratio 12.8 (10.0-20.0); Blood Urea Nitrogen 21 mg/dL (9-23); Calcium 9.1 mg/dL (8.7-10.4); Carbon Dioxide 25 mmol/L (20-31); Chloride 105 mmol/L (98-107); Glucose 84 mg/dL (74-106); Potassium 4.2 mmol/L (3.5-5.1); Sodium 139 mmol/L (136-145)
[2024-05-29 10:57] LABS: Bilirubin, Total 0.9 mg/dL (0.2-1.0)
--- NOTE | 2024-05-29 10:57 | DVHPN2 ---
Progress Note Date Seen: May 29, 2024 Medical Necessity Reason Pt with a Central, PICC or Fol: No Subjective Patient reports: No new complaints Other Systems: Patient seen and examined by myself today in follow-up Objective vital signs Vital Sign Date Time Temp Pulse Resp B/P (MAP) Pulse Ox O2 Delivery O2 Flow Rate FiO2 05/29/24 08:00 99.9 88 18 155/80 (105) 90 99.9 05/28/24 20:00 Room Air* 0 21 Total Intake and Output 05/28/24 05/28/24 05/29/24 15:00 23:00 07:00 Intake Total 1200 ml Output Total 400 ml Balance 800 ml medications Current Medications Medications Dose Ordered Sig/Monica Route Start Time Stop Time Status Last Admin Dose Admin Aspirin 81 mg DAILY PO 05/26/24 10:00 05/29/24 10:23 81 MG Hydralazine HCl 10 mg Q6HP PRN IV 05/25/24 19:45 05/28/24 09:16 10 MG Clopidogrel Bisulfate 75 mg DAILY PO 05/26/24 10:00 05/29/24 10:23 75 MG Tamsulosin HCl 0.4 mg QPM PO 05/26/24 18:00 05/28/24 18:00 0.4 MG Diagnostic Test (Pha) 1 strip ACHS 05/25/24 22:00 05/29/24 06:10 1 STRIP Insulin Human Regular ACHS SC 05/25/24 22:00 05/27/24 12:07 2 UNITS Dextrose 50 ml UD PRN IV 05/25/24 19:45 Sodium Chloride 1,000 ml @ 60 mls/hr [id number] IV 05/25/24 19:45 05/29/24 01:24 60 MLS/HR Acetaminophen/ Hydrocodone Bitart 1 tab Q4HP PRN PO 05/25/24 19:45 Ondansetron HCl 4 mg Q4HP PRN IV 05/25/24 19:45 Docusate Sodium 100 mg BIDPRN PRN PO 05/25/24 19:45 Acetaminophen 650 mg Q6HP PRN PO 05/25/24 19:45 Nitroglycerin 0.4 mg Q5MINP PRN SL 05/25/24 21:30 Morphine Sulfate 2 mg Q30M PRN IV 05/25/24 21:30 Ceftriaxone Sodium 50 ml @ 100 mls/hr DAILY@09 IV 05/27/24 09:00 05/29/24 10:16 100 MLS/HR Alprazolam 0.5 mg Q8HPRN PRN PO 05/27/24 09:00 05/29/24 05:23 0.5 MG Temazepam 30 mg HSPRN PRN PO 05/27/24 09:00 05/28/24 22:05 30 MG Amitriptyline HCl 25 mg HS PO 05/27/24 22:00 05/28/24 22:05 25 MG Lorazepam 1 mg Q12HP PRN IV 05/29/24 09:45 05/29/24 10:18 1 MG Examination: LUNGS:Normal, CVS:Normal, MSK:Normal laboratory and microbiology Test 05/29/24 09:50 Range/Units Serum Glucose Pending Microbiology Date/Time Source Procedure Growth Status 05/26/24 14:21 Blood Blood Culture - Preliminary NO GROWTH AFTER 48 HOURS OF INCUBATION. Resulted 05/26/24 07:20 Voided Urine Urine Culture - Final Complete Problem List/Assessment/Plan Problem List/Assessment/Plan EDUARDO superimposed on Chronic kidney disease IIIb- Generalized weakness Non obstructing left kidney stone HTN UTI Recommendations Kidney function is improving Avoid hypotension IV Abx kidney us b/l echogenic kidneys will continue to follow Plan discussed with: Patient My Orders My Orders Orders - GILBERTO DAILEY MD Procedure Category Date Status Time Urine LAB 05/28/24 Logged Protein/Creatinine 10:56 GILBERTO DAILEY MD May 29, 2024 10:57
[2024-05-29 11:03] LABS: Band Neutrophils % (manual) 0; Basophils % (manual) 0 (0.0-2.0); Eosinophils % (manual) 0 (0-7); Metamyelocytes % 0; Myelocytes % 0; Promyelocytes % 0; Reactive Lymphocytes 0; Total Protein 5.6 g/dL (5.7-8.2)
[2024-05-29 12:30] LABS: Blast Cells 1; Lymphocytes % (manual) 19 (10.0-50.0); Monocytes % (manual) 15 (0-12); Platelet Estimate Decreased
--- NOTE | 2024-05-29 12:41 | DVHPN2 ---
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 CONT PLAVIX HTN DIABETES 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 vital signs Vital Sign Date Time Temp Pulse Resp B/P (MAP) Pulse Ox O2 Delivery O2 Flow Rate FiO2 05/29/24 08:00 99.9 88 18 155/80 (105) 90 99.9 05/28/24 20:00 Room Air* 0 21 Total Intake and Output 05/28/24 05/28/24 05/29/24 15:00 23:00 07:00 Intake Total 1200 ml Output Total 400 ml Balance 800 ml medications Current Medications Medications Dose Ordered Sig/Monica Route Start Time Stop Time Status Last Admin Dose Admin Aspirin 81 mg DAILY PO 05/26/24 10:00 05/29/24 10:23 81 MG Hydralazine HCl 10 mg Q6HP PRN IV 05/25/24 19:45 05/28/24 09:16 10 MG Clopidogrel Bisulfate 75 mg DAILY PO 05/26/24 10:00 05/29/24 10:23 75 MG Tamsulosin HCl 0.4 mg QPM PO 05/26/24 18:00 05/28/24 18:00 0.4 MG Diagnostic Test (Pha) 1 strip ACHS 05/25/24 22:00 05/29/24 11:33 1 STRIP Insulin Human Regular ACHS SC 05/25/24 22:00 05/27/24 12:07 2 UNITS Dextrose 50 ml UD PRN IV 05/25/24 19:45 Sodium Chloride 1,000 ml @ 60 mls/hr [id number] IV 05/25/24 19:45 05/29/24 01:24 60 MLS/HR Acetaminophen/ Hydrocodone Bitart 1 tab Q4HP PRN PO 05/25/24 19:45 Ondansetron HCl 4 mg Q4HP PRN IV 05/25/24 19:45 Docusate Sodium 100 mg BIDPRN PRN PO 05/25/24 19:45 Acetaminophen 650 mg Q6HP PRN PO 05/25/24 19:45 Nitroglycerin 0.4 mg Q5MINP PRN SL 05/25/24 21:30 Morphine Sulfate 2 mg Q30M PRN IV 05/25/24 21:30 Ceftriaxone Sodium 50 ml @ 100 mls/hr DAILY@09 IV 05/27/24 09:00 05/29/24 10:16 100 MLS/HR Alprazolam 0.5 mg Q8HPRN PRN PO 05/27/24 09:00 05/29/24 05:23 0.5 MG Temazepam 30 mg HSPRN PRN PO 05/27/24 09:00 05/28/24 22:05 30 MG Amitriptyline HCl 25 mg HS PO 05/27/24 22:00 05/28/24 22:05 25 MG Lorazepam 1 mg Q12HP PRN IV 05/29/24 09:45 05/29/24 10:18 1 MG laboratory and microbiology Laboratory Tests 05/29/24 09:50 Test 05/29/24 09:50 Range/Units Serum Glucose 84 74-106 mg/dL Problem List SS COMPLEX WEAKNESS LETHARGY HYPERKALEMIA VOLUME DEPLETION POSSIBLE SEPSIS PMH; 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
--- NOTE | 2024-05-29 12:43 | DVHPN2 ---
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 vital signs Vital Sign Date Time Temp Pulse Resp B/P (MAP) Pulse Ox O2 Delivery O2 Flow Rate FiO2 05/29/24 08:00 99.9 88 18 155/80 (105) 90 99.9 05/28/24 20:00 Room Air* 0 21 Total Intake and Output 05/28/24 05/28/24 05/29/24 15:00 23:00 07:00 Intake Total 1200 ml Output Total 400 ml Balance 800 ml medications Current Medications Medications Dose Ordered Sig/Monica Route Start Time Stop Time Status Last Admin Dose Admin Aspirin 81 mg DAILY PO 05/26/24 10:00 05/29/24 10:23 81 MG Hydralazine HCl 10 mg Q6HP PRN IV 05/25/24 19:45 05/28/24 09:16 10 MG Clopidogrel Bisulfate 75 mg DAILY PO 05/26/24 10:00 05/29/24 10:23 75 MG Tamsulosin HCl 0.4 mg QPM PO 05/26/24 18:00 05/28/24 18:00 0.4 MG Diagnostic Test (Pha) 1 strip ACHS 05/25/24 22:00 05/29/24 11:33 1 STRIP Insulin Human Regular ACHS SC 05/25/24 22:00 05/27/24 12:07 2 UNITS Dextrose 50 ml UD PRN IV 05/25/24 19:45 Sodium Chloride 1,000 ml @ 60 mls/hr [id number] IV 05/25/24 19:45 05/29/24 01:24 60 MLS/HR Acetaminophen/ Hydrocodone Bitart 1 tab Q4HP PRN PO 05/25/24 19:45 Ondansetron HCl 4 mg Q4HP PRN IV 05/25/24 19:45 Docusate Sodium 100 mg BIDPRN PRN PO 05/25/24 19:45 Acetaminophen 650 mg Q6HP PRN PO 05/25/24 19:45 Nitroglycerin 0.4 mg Q5MINP PRN SL 05/25/24 21:30 Morphine Sulfate 2 mg Q30M PRN IV 05/25/24 21:30 Ceftriaxone Sodium 50 ml @ 100 mls/hr DAILY@09 IV 05/27/24 09:00 05/29/24 10:16 100 MLS/HR Alprazolam 0.5 mg Q8HPRN PRN PO 05/27/24 09:00 05/29/24 05:23 0.5 MG Temazepam 30 mg HSPRN PRN PO 05/27/24 09:00 05/28/24 22:05 30 MG Amitriptyline HCl 25 mg HS PO 05/27/24 22:00 05/28/24 22:05 25 MG Lorazepam 1 mg Q12HP PRN IV 05/29/24 09:45 05/29/24 10:18 1 MG laboratory and microbiology Laboratory Tests 05/29/24 09:50 Test 05/29/24 09:50 Range/Units Serum Glucose 84 74-106 mg/dL Problem List SS COMPLEX WEAKNESS LETHARGY HYPERKALEMIA VOLUME DEPLETION POSSIBLE SEPSIS PMH; 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
[2024-05-29 13:00] VITALS: BP 137/57; PULSE 81; RESP 17; TEMP 98.6; O2SAT 97
--- NOTE | 2024-05-29 13:28 | DVH ---
CHEST RADIOGRAPH Indication: FEVER Technique: Frontal and lateral view of the chest was obtained Comparison: XY CHEST TWO VIEWS ROUTINE on DOS: 05/22/24 FINDINGS: Lines and Tubes: None Lungs: No focal consolidation. Pleura: No effusion. No pneumothorax. Cardiomediastinal contours: Unremarkable Bones: No acute osseous abnormality. IMPRESSION: No acute cardiopulmonary disease.
[2024-05-29] MEDS: PIPERACILLIN-TAZOB 3.375GM 100 ML IV SCH (14:44)
[2024-05-29 16:52] VITALS: BP 156/59; PULSE 68; RESP 15; TEMP 98.2; O2SAT 93
[2024-05-29 20:00] VITALS: PULSE 87
[2024-05-29 21:00] VITALS: BP 155/57; PULSE 83; RESP 20; O2SAT 94
[2024-05-30 01:00] VITALS: BP 150/72; PULSE 96; RESP 20; TEMP 98.9; O2SAT 94
[2024-05-30 08:00] VITALS: PULSE 91; RESP 18
[2024-05-30 09:00] VITALS: BP 148/81; PULSE 89; RESP 17; TEMP 101
--- NOTE | 2024-05-30 13:00 | DVHPN2 ---
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 vital signs Vital Sign Date Time Temp Pulse Resp B/P (MAP) Pulse Ox O2 Delivery O2 Flow Rate FiO2 05/30/24 08:00 91 05/30/24 08:00 18 Room Air* 0 21 05/30/24 01:00 98.9 150/72 (98) 94 98.9 Total Intake and Output 05/29/24 05/29/24 05/30/24 15:00 23:00 07:00 Intake Total 50 ml 400 ml 400 ml Output Total 1200 ml Balance 50 ml 400 ml -800 ml medications Current Medications Medications Dose Ordered Sig/Monica Route Start Time Stop Time Status Last Admin Dose Admin Aspirin 81 mg DAILY PO 05/26/24 10:00 05/30/24 09:13 81 MG Hydralazine HCl 10 mg Q6HP PRN IV 05/25/24 19:45 05/28/24 09:16 10 MG Clopidogrel Bisulfate 75 mg DAILY PO 05/26/24 10:00 05/30/24 09:13 75 MG Tamsulosin HCl 0.4 mg QPM PO 05/26/24 18:00 05/29/24 17:17 0.4 MG Diagnostic Test (Pha) 1 strip ACHS 05/25/24 22:00 05/30/24 11:25 1 STRIP Insulin Human Regular ACHS SC 05/25/24 22:00 05/30/24 11:24 2 UNITS Dextrose 50 ml UD PRN IV 05/25/24 19:45 Sodium Chloride 1,000 ml @ 60 mls/hr [id number] IV 05/25/24 19:45 05/29/24 22:57 60 MLS/HR Acetaminophen/ Hydrocodone Bitart 1 tab Q4HP PRN PO 05/25/24 19:45 Ondansetron HCl 4 mg Q4HP PRN IV 05/25/24 19:45 Docusate Sodium 100 mg BIDPRN PRN PO 05/25/24 19:45 Acetaminophen 650 mg Q6HP PRN PO 05/25/24 19:45 Nitroglycerin 0.4 mg Q5MINP PRN SL 05/25/24 21:30 Morphine Sulfate 2 mg Q30M PRN IV 05/25/24 21:30 Alprazolam 0.5 mg Q8HPRN PRN PO 05/27/24 09:00 05/29/24 05:23 0.5 MG Temazepam 30 mg HSPRN PRN PO 05/27/24 09:00 05/29/24 22:37 30 MG Amitriptyline HCl 25 mg HS PO 05/27/24 22:00 05/29/24 22:40 25 MG Lorazepam 1 mg Q12HP PRN IV 05/29/24 09:45 05/30/24 09:48 1 MG Piperacillin Sod/ Tazobactam Sod 100 ml @ 25 mls/hr Q8HR IV 05/29/24 14:00 05/30/24 08:22 25 MLS/HR laboratory and microbiology Laboratory Tests 05/29/24 09:50 Test 05/29/24 09:50 Range/Units Serum Glucose 84 74-106 mg/dL Problem List SS COMPLEX WEAKNESS LETHARGY HYPERKALEMIA VOLUME DEPLETION POSSIBLE SEPSIS PMH; 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
--- NOTE | 2024-05-30 16:18 | DVHPN2 ---
Progress Note Date Seen: May 30, 2024 Medical Necessity Reason Pt with a Central, PICC or Fol: No Subjective Patient reports: No new complaints Other Systems: Patient seen and examined by myself today Objective vital signs Vital Sign Date Time Temp Pulse Resp B/P (MAP) Pulse Ox O2 Delivery O2 Flow Rate FiO2 05/30/24 08:00 91 05/30/24 08:00 18 Room Air* 0 21 05/30/24 01:00 98.9 150/72 (98) 94 98.9 Total Intake and Output 05/29/24 05/29/24 05/30/24 15:00 23:00 07:00 Intake Total 50 ml 400 ml 400 ml Output Total 1200 ml Balance 50 ml 400 ml -800 ml medications Current Medications Medications Dose Ordered Sig/Monica Route Start Time Stop Time Status Last Admin Dose Admin Aspirin 81 mg DAILY PO 05/26/24 10:00 05/30/24 09:13 81 MG Hydralazine HCl 10 mg Q6HP PRN IV 05/25/24 19:45 05/28/24 09:16 10 MG Clopidogrel Bisulfate 75 mg DAILY PO 05/26/24 10:00 05/30/24 09:13 75 MG Tamsulosin HCl 0.4 mg QPM PO 05/26/24 18:00 05/29/24 17:17 0.4 MG Diagnostic Test (Pha) 1 strip ACHS 05/25/24 22:00 05/30/24 11:25 1 STRIP Insulin Human Regular ACHS SC 05/25/24 22:00 05/30/24 11:24 2 UNITS Dextrose 50 ml UD PRN IV 05/25/24 19:45 Sodium Chloride 1,000 ml @ 60 mls/hr [id number] IV 05/25/24 19:45 05/29/24 22:57 60 MLS/HR Acetaminophen/ Hydrocodone Bitart 1 tab Q4HP PRN PO 05/25/24 19:45 Ondansetron HCl 4 mg Q4HP PRN IV 05/25/24 19:45 Docusate Sodium 100 mg BIDPRN PRN PO 05/25/24 19:45 Acetaminophen 650 mg Q6HP PRN PO 05/25/24 19:45 Nitroglycerin 0.4 mg Q5MINP PRN SL 05/25/24 21:30 Morphine Sulfate 2 mg Q30M PRN IV 05/25/24 21:30 Alprazolam 0.5 mg Q8HPRN PRN PO 05/27/24 09:00 05/29/24 05:23 0.5 MG Temazepam 30 mg HSPRN PRN PO 05/27/24 09:00 05/29/24 22:37 30 MG Amitriptyline HCl 25 mg HS PO 05/27/24 22:00 05/29/24 22:40 25 MG Lorazepam 1 mg Q12HP PRN IV 05/29/24 09:45 05/30/24 09:48 1 MG Piperacillin Sod/ Tazobactam Sod 100 ml @ 25 mls/hr Q8HR IV 05/29/24 14:00 05/30/24 13:50 25 MLS/HR Examination: LUNGS:Normal (n follow-up), CVS:Normal, MSK:Normal laboratory and microbiology Laboratory Tests 05/29/24 09:50 Test 05/29/24 09:50 Range/Units Serum Glucose 84 74-106 mg/dL Microbiology Date/Time Source Procedure Growth Status 05/26/24 14:21 Blood Blood Culture - Preliminary NO GROWTH AFTER 72 HOURS OF INCUBATION. Resulted 05/26/24 07:20 Voided Urine Urine Culture - Final Complete Problem List/Assessment/Plan Problem List/Assessment/Plan EDUARDO superimposed on Chronic kidney disease IIIb- Generalized weakness Non obstructing left kidney stone HTN UTI Recommendations Kidney function is improving Avoid hypotension IV Abx kidney us b/l echogenic kidneys will continue to follow Plan discussed with: Patient GILBERTO DAILEY MD May 30, 2024 16:18
[2024-05-30 17:00] VITALS: BP 129/62; PULSE 77; RESP 18; TEMP 97.6; O2SAT 93
[2024-05-30 20:00] VITALS: PULSE 60
[2024-05-30 21:00] VITALS: BP 121/67; PULSE 80; RESP 19; TEMP 98.1; O2SAT 94
[2024-05-31] VITALS (7 sets, daily range): BP systolic 94–157; BP diastolic 46–74; PULSE 61–82; RESP 16–19; TEMP 97.6–98.3; O2SAT 94–99
[2024-05-31] MEDS: HYDROcodone-ACET 5/325MG TAB PO PRN (09:15)
--- NOTE | 2024-05-31 12:31 | DVHPN2 ---
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 CONT PLAVIX HTN DIABETES 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 vital signs Vital Sign Date Time Temp Pulse Resp B/P (MAP) Pulse Ox O2 Delivery O2 Flow Rate FiO2 05/31/24 09:00 98.1 74 18 116/55 (75) 95 98.1 05/31/24 08:00 Room Air* 0 21 Total Intake and Output 05/30/24 05/30/24 05/31/24 15:00 23:00 07:00 Intake Total 100 ml 940 ml 340 ml Output Total 450 ml Balance 100 ml 490 ml 340 ml medications Current Medications Medications Dose Ordered Sig/Monica Route Start Time Stop Time Status Last Admin Dose Admin Aspirin 81 mg DAILY PO 05/26/24 10:00 05/31/24 09:15 81 MG Hydralazine HCl 10 mg Q6HP PRN IV 05/25/24 19:45 05/31/24 06:03 10 MG Clopidogrel Bisulfate 75 mg DAILY PO 05/26/24 10:00 05/31/24 09:15 75 MG Tamsulosin HCl 0.4 mg QPM PO 05/26/24 18:00 05/30/24 17:49 0.4 MG Diagnostic Test (Pha) 1 strip ACHS 05/25/24 22:00 05/31/24 11:12 1 STRIP Insulin Human Regular ACHS SC 05/25/24 22:00 05/31/24 11:12 3 UNITS Dextrose 50 ml UD PRN IV 05/25/24 19:45 Sodium Chloride 1,000 ml @ 60 mls/hr [id number] IV 05/25/24 19:45 05/31/24 09:16 60 MLS/HR Acetaminophen/ Hydrocodone Bitart 1 tab Q4HP PRN PO 05/25/24 19:45 05/31/24 09:15 1 TAB Ondansetron HCl 4 mg Q4HP PRN IV 05/25/24 19:45 Docusate Sodium 100 mg BIDPRN PRN PO 05/25/24 19:45 Acetaminophen 650 mg Q6HP PRN PO 05/25/24 19:45 Nitroglycerin 0.4 mg Q5MINP PRN SL 05/25/24 21:30 Morphine Sulfate 2 mg Q30M PRN IV 05/25/24 21:30 Alprazolam 0.5 mg Q8HPRN PRN PO 05/27/24 09:00 05/29/24 05:23 0.5 MG Temazepam 30 mg HSPRN PRN PO 05/27/24 09:00 05/30/24 23:01 30 MG Amitriptyline HCl 25 mg HS PO 05/27/24 22:00 05/30/24 23:00 25 MG Lorazepam 1 mg Q12HP PRN IV 05/29/24 09:45 05/30/24 09:48 1 MG Piperacillin Sod/ Tazobactam Sod 100 ml @ 25 mls/hr Q8HR IV 05/29/24 14:00 05/31/24 06:03 25 MLS/HR laboratory and microbiology Laboratory Tests 05/29/24 09:50 Test 05/29/24 09:50 Range/Units Serum Glucose 84 74-106 mg/dL Problem List SS COMPLEX WEAKNESS LETHARGY HYPERKALEMIA VOLUME DEPLETION POSSIBLE SEPSIS PMH; 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
--- NOTE | 2024-05-31 14:47 | DVHPN2 ---
Progress Note Date Seen: May 31, 2024 Medical Necessity Reason Pt with a Central, PICC or Fol: No Subjective Patient reports: No new complaints Other Systems: Patient seen and examined by myself today in follow-up Objective vital signs Vital Sign Date Time Temp Pulse Resp B/P (MAP) Pulse Ox O2 Delivery O2 Flow Rate FiO2 05/31/24 09:00 98.1 74 18 116/55 (75) 95 98.1 05/31/24 08:00 Room Air* 0 21 Total Intake and Output 05/30/24 05/30/24 05/31/24 15:00 23:00 07:00 Intake Total 100 ml 940 ml 340 ml Output Total 450 ml Balance 100 ml 490 ml 340 ml medications Current Medications Medications Dose Ordered Sig/Moniac Route Start Time Stop Time Status Last Admin Dose Admin Aspirin 81 mg DAILY PO 05/26/24 10:00 05/31/24 09:15 81 MG Hydralazine HCl 10 mg Q6HP PRN IV 05/25/24 19:45 05/31/24 06:03 10 MG Clopidogrel Bisulfate 75 mg DAILY PO 05/26/24 10:00 05/31/24 09:15 75 MG Tamsulosin HCl 0.4 mg QPM PO 05/26/24 18:00 05/30/24 17:49 0.4 MG Diagnostic Test (Pha) 1 strip ACHS 05/25/24 22:00 05/31/24 11:12 1 STRIP Insulin Human Regular ACHS SC 05/25/24 22:00 05/31/24 11:12 3 UNITS Dextrose 50 ml UD PRN IV 05/25/24 19:45 Acetaminophen/ Hydrocodone Bitart 1 tab Q4HP PRN PO 05/25/24 19:45 05/31/24 09:15 1 TAB Ondansetron HCl 4 mg Q4HP PRN IV 05/25/24 19:45 Docusate Sodium 100 mg BIDPRN PRN PO 05/25/24 19:45 Acetaminophen 650 mg Q6HP PRN PO 05/25/24 19:45 Nitroglycerin 0.4 mg Q5MINP PRN SL 05/25/24 21:30 Temazepam 30 mg HSPRN PRN PO 05/27/24 09:00 05/30/24 23:01 30 MG Amitriptyline HCl 25 mg HS PO 05/27/24 22:00 05/30/24 23:00 25 MG Piperacillin Sod/ Tazobactam Sod 100 ml @ 25 mls/hr Q8HR IV 05/29/24 14:00 05/31/24 13:46 25 MLS/HR Examination: LUNGS:Normal, CVS:Normal, MSK:Normal laboratory and microbiology Laboratory Tests 05/29/24 09:50 Test 05/29/24 09:50 Range/Units Serum Glucose 84 74-106 mg/dL Microbiology Date/Time Source Procedure Growth Status 05/26/24 14:21 Blood Blood Culture - Final NO GROWTH AFTER 5 DAYS OF INCUBATION. Complete 05/26/24 07:20 Voided Urine Urine Culture - Final Complete Problem List/Assessment/Plan Problem List/Assessment/Plan EDUARDO superimposed on Chronic kidney disease IIIb- Generalized weakness Non obstructing left kidney stone Congestive heart failure, ejection fraction 35% HTN UTI Recommendations Kidney function is improving Avoid hypotension IV Abx kidney us b/l echogenic kidneys will continue to follow Plan discussed with: Patient GILBERTO DAILEY MD May 31, 2024 14:47
[2024-05-31] MEDS: DOCUSATE SOD 100 MG CAP PO PRN (17:42)
[2024-06-01 05:00] VITALS: BP 126/53; PULSE 65; RESP 16; TEMP 98; O2SAT 99
[2024-06-01 08:00] VITALS: PULSE 67
[2024-06-01 09:00] VITALS: BP 137/63; PULSE 67; RESP 17; O2SAT 94
--- NOTE | 2024-06-01 12:18 | DVHPN2 ---
Progress Note Date Seen: Jun 01, 2024 Medical Necessity Reason Pt with a Central, PICC or Fol: No Subjective Patient reports: No new complaints Other Systems: Patient seen and examined by myself today in follow-up Objective vital signs Vital Sign Date Time Temp Pulse Resp B/P (MAP) Pulse Ox O2 Delivery O2 Flow Rate FiO2 06/01/24 09:00 67 17 137/63 (87) 94 06/01/24 05:00 98.0 98.0 05/31/24 20:00 Room Air* 0 21 Total Intake and Output 05/31/24 05/31/24 06/01/24 15:00 23:00 07:00 Intake Total 1000 ml 1620 ml 700 ml Output Total 850 ml 700 ml Balance 1000 ml 770 ml 0 ml medications Current Medications Medications Dose Ordered Sig/Monica Route Start Time Stop Time Status Last Admin Dose Admin Aspirin 81 mg DAILY PO 05/26/24 10:00 06/01/24 09:58 81 MG Hydralazine HCl 10 mg Q6HP PRN IV 05/25/24 19:45 05/31/24 06:03 10 MG Clopidogrel Bisulfate 75 mg DAILY PO 05/26/24 10:00 06/01/24 09:58 75 MG Tamsulosin HCl 0.4 mg QPM PO 05/26/24 18:00 05/31/24 17:42 0.4 MG Diagnostic Test (Pha) 1 strip ACHS 05/25/24 22:00 06/01/24 06:01 1 STRIP Insulin Human Regular ACHS SC 05/25/24 22:00 05/31/24 21:47 3 UNITS Dextrose 50 ml UD PRN IV 05/25/24 19:45 Acetaminophen/ Hydrocodone Bitart 1 tab Q4HP PRN PO 05/25/24 19:45 05/31/24 09:15 1 TAB Ondansetron HCl 4 mg Q4HP PRN IV 05/25/24 19:45 Docusate Sodium 100 mg BIDPRN PRN PO 05/25/24 19:45 05/31/24 21:39 100 MG Acetaminophen 650 mg Q6HP PRN PO 05/25/24 19:45 Nitroglycerin 0.4 mg Q5MINP PRN SL 05/25/24 21:30 Temazepam 30 mg HSPRN PRN PO 05/27/24 09:00 05/30/24 23:01 30 MG Amitriptyline HCl 25 mg HS PO 05/27/24 22:00 05/31/24 21:39 25 MG Piperacillin Sod/ Tazobactam Sod 100 ml @ 25 mls/hr Q8HR IV 05/29/24 14:00 06/01/24 06:01 25 MLS/HR Examination: LUNGS:Normal, CVS:Normal, MSK:Normal laboratory and microbiology Laboratory Tests 05/29/24 09:50 Test 05/29/24 09:50 Range/Units Serum Glucose 84 74-106 mg/dL Microbiology Date/Time Source Procedure Growth Status 05/26/24 14:21 Blood Blood Culture - Final NO GROWTH AFTER 5 DAYS OF INCUBATION. Complete 05/26/24 07:20 Voided Urine Urine Culture - Final Complete Problem List/Assessment/Plan Problem List/Assessment/Plan EDUARDO superimposed on Chronic kidney disease IIIb- Generalized weakness Non obstructing left kidney stone Congestive heart failure, ejection fraction 35% HTN UTI Recommendations Kidney function continues to improve Increased urine output Avoid hypotension IV Abx kidney us b/l echogenic kidneys will continue to follow Plan discussed with: Patient GILBERTO DAILEY MD Jun 01, 2024 12:18
[2024-06-01 12:36] VITALS: BP 120/66; PULSE 95; RESP 17; TEMP 97.4; O2SAT 97
--- NOTE | 2024-06-01 14:23 | DVHDS2 ---
Discharge Summary Date of Admission May 25, 2024 at 21:30 Date of Discharge: Jun 01, 2024 Admitting Diagnosis AMS Labs/Diagnostic Data: Laboratory Results Test 06/01/24 11:57 05/29/24 09:50 05/28/24 13:20 05/26/24 07:20 POC Glucose 121 mg/dl (70-106) White Blood Count 3.5 10^3/uL (4.4-10.8) Red Blood Count 4.08 10^6/uL (4.5-5.90) Hemoglobin 12.8 g/dL (13.5-17.5) Hematocrit 37.5 % (41.0-53.0) Mean Corpuscular Volume 91.8 fL (80.0-100.0) Mean Corpuscular Hemoglobin 31.5 pg (28.0-32.0) Mean Corpuscular Hemoglobin Concent 34.3 g/dL (32.0-36.0) Red Cell Distribution Width 13.2 % (11.8-14.3) Platelet Count 136 10^3/uL (140-450) Mean Platelet Volume 6.8 fL (6.9-10.8) Neutrophils (%) (Auto) % (37.0-80.0) Lymphocytes (%) (Auto) % (10.0-50.0) Monocytes (%) (Auto) % (0.0-12.0) Basophils (%) (Auto) % (0.0-2.0) Neutrophils # (Auto) 10 ^3/uL (1.6-8.6) Lymphocytes # (Auto) 10 ^3/uL (0.4-5.4) Monocytes # (Auto) 10 ^3/uL (0-1.3) Differential Total Cells Counted 100.0 (100) Neutrophils % (Manual) 65 (37.0-80.0) Band Neutrophils % (Manual) 0 Lymphocytes % (Manual) 19 (10.0-50.0) Monocytes % (Manual) 15 (0-12) Eosinophils % (Manual) 0 (0-7) Basophils % (Manual) 0 (0.0-2.0) Metamyelocytes % (manual) 0 Myelocytes % (Manual) 0 Promyelocytes % (Manual) 0 Blast Cells % (Manual) 1 Reactive Lymphocytes 0 Platelet Estimate Decreased Sodium Level 139 mmol/L (136-145) Potassium Level 4.2 mmol/L (3.5-5.1) Chloride Level 105 mmol/L (98-107) Carbon Dioxide Level 25 mmol/L (20-31) Anion Gap 9 (5-15) Blood Urea Nitrogen 21 mg/dL (9-23) Creatinine 1.64 mg/dL (0.700-1.30) Glomerular Filtration Rate Calc 42 mL/min (>90) BUN/Creatinine Ratio 12.8 (10.0-20.0) Serum Glucose 84 mg/dL (74-106) Calcium Level 9.1 mg/dL (8.7-10.4) Total Bilirubin 0.9 mg/dL (0.2-1.0) Aspartate Amino Transferase (AST) 18 U/L (13-40) Alanine Aminotransferase (ALT) 15 U/L (7-40) Alkaline Phosphatase 49 U/L (46-116) Total Protein 5.6 g/dL (5.7-8.2) Albumin 3.5 g/dL (3.2-4.8) Phosphorus Level 2.7 mg/dL (2.4-5.1) Magnesium Level 1.7 mg/dL (1.6-2.6) Vitamin D 25-Hydroxy 60.5 ng/mL (30.0-100) Parathyroid Hormone (Intact) 76.0 pg/mL (18.4-80.1) Urine Color Light-yellow (Yellow) Urine Clarity Turbid (Clear) Urine pH 5.5 (5.0-9.0) Urine Specific [place] 1.016 (1.001-1.035) Urine Protein Negative (Negative) Urine Ketones Negative (Negative) Urine Blood Negative /uL (Negative) Urine Nitrite Negative (Negative) Urine Bilirubin Negative (Negative) Urine Urobilinogen Normal mg/dL (Negative) Urine Leukocyte Esterase 3+ /uL (Negative) Urine RBC 16 /hpf (0 - 3) Urine WBC 176 /hpf (0 - 3) Urine Squamous Epithelial Cells Few /hpf (<5) Urine Bacteria None seen /hpf (None Seen) Urine Glucose Normal mg/dL (Normal) Test 05/26/24 05:49 05/25/24 15:19 05/25/24 13:08 Eosinophils (%) (Auto) 0.4 % (0.0-7.0) Eosinophils # (Auto) 0 10 ^3/uL (0-0.8) Basophils # (Auto) 0 10 ^3/uL (0-0.2) Nucleated Red Blood Cells 0.0 % Lactic Acid Level 1.3 mmol/L (0.4-2.0) Direct Bilirubin 0.2 mg/dL (<0.3) B-Type Natriuretic Peptide 27.78 pg/mL (0-100) Lipase 91 U/L (12-53) Thyroid Stimulating Hormone (TSH) 1.25 uIU/mL (0.55-4.78) Other Laboratory Tests 05/29/24 09:50 Brief Hx & Hospital Course: SS COMPLEX WEAKNESS LETHARGY HYPERKALEMIA VOLUME DEPLETION POSSIBLE SEPSIS PMH; 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 PLAVIX HTN DIABETES 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 UTI Assessment/Plan CORRECT HYPERKALEMIA IV FLUID ABX PT CHANGE ABX TO ZOSYN FOR BETTER PSEUDOMONAS COVERAGE AND GRAM NEGATIVE BLOOD CX NEGATIVE PT AFEBRILE PHYSICAL THERAPY METABOLIC ENCEPHALOPATHY RESOLVED AMBULATING DC HOME Condition at Discharge: Guarded Final Diagnosis/Problems List WEAKNESS LETHARGY HYPERKALEMIA VOLUME DEPLETION POSSIBLE SEPSIS PMH; 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 Patient was counseled about treatment plan, medications, possible side effects, patientverbalized understanding. All questions were answered to the best of my ability. This discharge took greater then 30 minutes in planning, reviewing documentation, counseling the patient, and discussing with other team members." ASSESSMENT ASSESSMENT Assessment EBENEZER SUN MD Jun 01, 2024 14:22
== END 2024-06-01 16:55 | disposition home or self-care (01) | DRG 871 ==
LOC: ER 10:46 → EDBD 10:46 → TELE 21:30 → TELE-WESTW 05-26 02:21
PROVIDERS: ADMIT Family Medicine; ATTEND Internal Medicine Cardiovascular Disease
DX: A41.9 Sepsis, unspecified organism (principal); G93.41 Metabolic encephalopathy; N17.9 Acute kidney failure, unspecified; N39.0 Urinary tract infection, site not specified; E87.21 Acute metabolic acidosis; R29.6 Repeated falls; E87.5 Hyperkalemia; E11.65 Type 2 diabetes mellitus with hyperglycemia; N18.32 Chronic kidney disease, stage 3b; E11.22 Type 2 diabetes mellitus with diabetic chronic kidney disease; I12.9 Hypertensive chronic kidney disease with stage 1 through stage 4 chronic kidney disease, or unspecified chronic kidney disease; N40.0 Benign prostatic hyperplasia without lower urinary tract symptoms; E11.40 Type 2 diabetes mellitus with diabetic neuropathy, unspecified; E86.0 Dehydration; I25.5 Ischemic cardiomyopathy; I25.2 Old myocardial infarction; Z82.49 Family history of ischemic heart disease and other diseases of the circulatory system; Z95.1 Presence of aortocoronary bypass graft; Z68.27 Body mass index [BMI] 27.0-27.9, adult
CPT/HCPCS: 36415; 70450; 71045; 71046; 76775; 80048; 80053; 80076; 81001; 82306; 82962; 83605; 83690; 83735; 83880; 83970; 84100; 84443; 85007; 85025; 85027; 87040; 87086; 96360; 96361; 96365; 96366; 96372; 97116; 97162; 97530; 99291; G0378; G0463; J1815; J2543

== ENCOUNTER → 2024-06-11 | Outpatient (CLI) | payer MEDICARE, OTHER ==
[~2024-06-11] MED LIST changes: +ALPR0.5T8
--- NOTE | 2024-06-11 14:50 | DVH ---
EXAM: XY CHEST TWO VIEWS ROUTINE HISTORY: SOB COMPARISON: XY CHEST TWO VIEWS ROUTINE on DOS: 05/22/24, XY CHEST TWO VIEWS ROUTINE on DOS: 10/12/23, XY CHEST TWO VIEWS ROUTINE on DOS: 10/08/22, CHEST TWO VIEWS ROUTINE on DOS: 06/25/19, CHEST TWO VIEWS ROU CHILO on DOS: 04/04/19 TECHNIQUE: Frontal and lateral views of the chest were performed. FINDINGS: No pneumothorax, pulmonary edema, pleural effusions, or consolidative infiltrates. The heart is not enlarged. There are postoperative changes of median sternotomy. There is thoracic degenerative disc d isease with bridging syndesmophytes present. No acute fractures are identified about the bony thorax. IMPRESSION: Postoperative changes of the heart without evidence of acute intrathoracic process.
== END | disposition home or self-care (01) ==
LOC: Rad HDHVI 14:35
PROVIDERS: ATTEND Internal Medicine Cardiovascular Disease
DX: J18.9 Pneumonia, unspecified organism (principal); R06.02 Shortness of breath; M51.34 Other intervertebral disc degeneration, thoracic region; Z98.890 Other specified postprocedural states
CPT/HCPCS: 71046

== ENCOUNTER → 2024-06-22 | Outpatient (CLI) | payer MEDICARE, OTHER ==
[2024-06-22 15:52] VITALS: BP 140/70; PULSE 67
[2024-06-22 15:53] VITALS: BP 126/76; PULSE 64
== END | disposition home or self-care (01) ==
LOC: CHF HDHVI 14:25
PROVIDERS: ATTEND Internal Medicine Cardiovascular Disease
DX: I25.718 Atherosclerosis of autologous vein coronary artery bypass graft(s) with other forms of angina pectoris (principal); I50.23 Acute on chronic systolic (congestive) heart failure
CPT/HCPCS: G0166

== ENCOUNTER → 2024-07-02 | Outpatient (CLI) | payer MEDICARE, OTHER ==
[~2024-07-02] VITALS: Ht 190.5 cm; Wt 102.1 kg
[~2024-07-02] MED LIST changes: +ADENOSINE 86 MG in GIVE UN-DILUTED 0 ML IV ONE; +ADENOSINE 90 MG/30 ML INJ IV ONE
== END | disposition home or self-care (01) ==
LOC: Rad HDHVI 12:50
PROVIDERS: ATTEND Internal Medicine Cardiovascular Disease
DX: I44.0 Atrioventricular block, first degree (principal); R00.1 Bradycardia, unspecified; I49.3 Ventricular premature depolarization; I49.1 Atrial premature depolarization; I13.0 Hypertensive heart and chronic kidney disease with heart failure and stage 1 through stage 4 chronic kidney disease, or unspecified chronic kidney disease; I50.23 Acute on chronic systolic (congestive) heart failure; E11.22 Type 2 diabetes mellitus with diabetic chronic kidney disease; E11.21 Type 2 diabetes mellitus with diabetic nephropathy; N18.31 Chronic kidney disease, stage 3a; I73.9 Peripheral vascular disease, unspecified; I25.5 Ischemic cardiomyopathy; I42.0 Dilated cardiomyopathy; I25.10 Atherosclerotic heart disease of native coronary artery without angina pectoris; E78.00 Pure hypercholesterolemia, unspecified; I25.2 Old myocardial infarction; R06.02 Shortness of breath; R42 Dizziness and giddiness; Z82.49 Family history of ischemic heart disease and other diseases of the circulatory system; Z95.1 Presence of aortocoronary bypass graft
CPT/HCPCS: 78452; 93005; 93017; A9500; J0153; 96374; 96375

== ENCOUNTER 2024-11-26 15:11 | Outpatient (CLI) | payer MEDICARE, OTHER ==
[~2024-11-26 15:11] MED LIST changes: -ADENOSINE 86 MG in GIVE UN-DILUTED 0 ML IV ONE; -ADENOSINE 90 MG/30 ML INJ IV ONE
--- NOTE | 2024-11-26 15:42 | DVH ---
CLINICAL INDICATION: PAIN POST FALL TECHNIQUE: 3 radiographic views of the right knee were obtained. Comparison: None FINDINGS/IMPRESSION: There is no evidence of acute fracture or dislocation. Superior medial knee compartment joint space narrowing with mild osteophytic bony changes of the medi al and lateral knee compartments. Severe patellofemoral joint space narrowing severe hepatic bony israel nges of the patellofemoral joint. Large bony spur from the inferior pole of the anterior surface of t he patella with small bony spur from the superior pole of the anterior surface of the patella. Bony s pur of the tibial tuberosity. The alignment is anatomical. There is no radiopaque foreign body.
--- NOTE | 2024-11-26 15:48 | DVH ---
Procedure: XY KUB ABDOMEN SINGLE VIEW Study Date and Requested Time: 11/26/2024 04:15 PM History: ABD PAIN Technique: 3 views of the abdomen and pelvis available for evaluation. Comparison: None Findings/ Impression: Nonspecific bowel gas pattern. No evidence of bowel obstruction or ileus. No abnormal calcifications noted. If symptoms persist, consider CT for further evaluation. The lung bases are clear. Partially visualized Midline sternotomy wires. Moderate to severe degenerative changes at L5-S1. Severe degenerative changes of bilateral hips. Abnormal cortical contour of the right superior femor al head and neck which may represent CAM type deformity. Linear lucency overlying the bilateral femor al head and neck junction which may be from overlying acetabulum. If there is concern for fracture, d edicated radiographs of the hips/ CT may be considered for further evaluation.
== END 2024-11-26 17:00 | disposition home or self-care (01) ==
LOC: Rad HDHVI 15:11
PROVIDERS: ATTEND Internal Medicine Cardiovascular Disease
DX: M16.0 Bilateral primary osteoarthritis of hip (principal); M76.51 Patellar tendinitis, right knee; M25.761 Osteophyte, right knee; M47.817 Spondylosis without myelopathy or radiculopathy, lumbosacral region; M25.861 Other specified joint disorders, right knee; R10.9 Unspecified abdominal pain; G89.11 Acute pain due to trauma
CPT/HCPCS: 73562; 74018

== ENCOUNTER 2024-12-24 14:57 | Outpatient (CLI) | payer MEDICARE, OTHER ==
--- NOTE | 2024-12-24 15:33 | DVH ---
XY CHEST TWO VIEWS ROUTINE CLINICAL HISTORY: PRE OP COMPARISON: XY CHEST TWO VIEWS ROUTINE on DOS: 06/11/24, XY CHEST PORTABLE on DOS: 05/29/24, XY CHEST TW O VIEWS ROUTINE on DOS: 05/22/24, XY CHEST TWO VIEWS ROUTINE on DOS: 10/12/23, XY CHEST TWO VIEWS ROUTIN E on DOS: 10/08/22 TECHNIQUE: Frontal and lateral view of the chest was obtained FINDINGS: Lines and Tubes: None Lungs: No focal consolidation. Pleura: No effusion. No pneumothorax. Cardiomediastinal contours: Unremarkable Bones: Median sternotomy. IMPRESSION: No acute cardiopulmonary disease.
== END 2024-12-24 17:00 | disposition home or self-care (01) ==
LOC: Rad HDHVI 14:57
PROVIDERS: ATTEND Internal Medicine Cardiovascular Disease
DX: Z01.818 Encounter for other preprocedural examination (principal); R06.02 Shortness of breath
CPT/HCPCS: 71046